=== PATIENT | female | born 1965 | race African-American/Black ===

== ENCOUNTER 2017-09-24 14:55 | Inpatient (IN) ==
--- NOTE | 2017-09-24 14:59 | Emergency Department Note ---
Disposition Clinical Impression: Syncope and collapse Disposition: Admitted As Inpatient Condition: Fair General Adult HPI - General Chief complaint: ED Fall Stated complaint: SYNCOPE Time Seen by Provider: 09/24/17 14:58 - Related Data Home Medications Medication Instructions Recorded Confirmed Metoprolol XL (24 HR) Succ [Toprol 100 mg PO DAILY 05/04/15 05/29/17 Xl] Simvastatin [Zocor] 40 mg PO HS 05/04/15 05/29/17 Rivaroxaban [Xarelto] 20 mg PO DAILY 06/23/15 05/29/17 Gabapentin [Neurontin] 300 mg PO HS 01/12/16 05/29/17 Furosemide [Lasix] 20 mg PO DAILY 02/02/16 05/29/17 Losartan [Cozaar] 25 mg PO DAILY 02/02/16 05/29/17 Trazodone HCl 150 mg PO HS 02/02/16 05/29/17 Nitroglycerin [Nitrostat] 0.4 mg SL Q5M PRN 03/10/16 05/29/17 Aspirin 81 mg PO DAILY 05/04/16 05/29/17 Digoxin [Lanoxin] 0.125 mg PO DAILY 04/22/17 05/29/17 Escitalopram [Lexapro] 20 mg PO DAILY 04/22/17 05/29/17 Melatonin 10 mg PO HS PRN 04/22/17 05/29/17 Ranitidine HCl [Zantac] 150 mg PO HS 04/22/17 05/29/17 Previous Rx's Medication Instructions Recorded Clopidogrel [Plavix] 75 mg PO DAILY #30 tablet 03/10/16 Potassium Chloride [K-Tab ER] 20 meq PO DAILY #7 tablet.er 06/01/17 Amoxicillin 875 mg PO BID #14 tablet 07/26/17 Allergies Allergy/AdvReac Type Severity Reaction Status Date / Time No Known Allergies Allergy Verified 05/29/17 16:28 Past Medical History - Past Medical History Medical history: Reports: arthritis, atrial fibrillation, cardiomyopathy, CHF, COPD, coronary artery disease, hyperlipidemia, hypertension, myocardial infarction, osteoporosis, peripheral artery disease, other Surgical history: Reports: angioplasty/stent, breast surgery, pacemaker/AICD, other Psychiatric history: Reports: anxiety, depression, panic disorder 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 - Social History Smoking Status: Unknown if ever smoked Smokeless Tobacco Status: No Alcohol use: Reports: none Drug use: Reports: none Course Vital Signs Temperature 97.6 F 09/24/17 14:57 Pulse Rate 101 09/24/17 14:57 Respiratory Rate 22 09/24/17 14:57 Blood Pressure 120/99 09/24/17 14:57 O2 Sat by Pulse Oximetry 94 09/24/17 14:57 Temperature 97.9 F 09/25/17 07:04 Pulse Rate 85 09/25/17 07:04 Respiratory Rate 15 09/25/17 07:04 Blood Pressure 102/66 09/25/17 07:04 O2 Sat by Pulse Oximetry 97 09/25/17 07:04 Oxygen Delivery Oxygen Delivery Room Air Medical Decision Making - Lab Data Result diagrams: 09/25/17 03:30 09/25/17 03:30 Lab Results 09/24/17 09/24/17 09/24/17 Range/Units 15:03 15:43 15:43 WBC 6.4 (4.3-11.1) K/mcL RBC 4.53 (3.82-4.97) M/mcL Hgb 12.7 (11.5-15.4) g/dL Hct 41.2 (35.3-44.9) % MCV 90.9 (83.0-100.0) fL MCH 28.0 (28.0-33.3) pg MCHC 30.8 L (31.6-35.5) g/dL RDW 15.0 H (11.5-14.5) % Plt Count 244 (140-400) K/mcL MPV 9.5 (9.4-12.4) fL Immature Gran % 0.3 (0-4) % Seg Neutrophils % 71.4 % Lymphocytes % 16.0 % Monocytes % 8.1 % Eosinophils % 3.7 % Basophils % 0.5 % Neutrophils # 4.6 (1.6-8.9) K/mcL Lymphocytes # 1.0 (0.6-4.6) K/mcL Monocytes # 0.5 (0.0-1.3) K/mcL Eosinophils # 0.2 (0.0-0.6) K/mcL Basophils # 0.0 (0.0-0.2) K/mcL Immature Plt Fraction 2.3 (1.1-6.1) % Sodium 140 (136-145) mEq/L Potassium 3.6 (3.5-5.1) mEq/L Chloride 109 H (98-107) mEq/L Carbon Dioxide 25 (23-29) mEq/L BUN 12 (6-20) mg/dL Creatinine 0.73 (0.60-1.20) mg/dL Est GFR ( Amer) > 60 (> 60) Est GFR (Non-Af Amer) > 60 (> 60) BUN/Creatinine Ratio 16 (6-26) Glucose 102 (70-105) mg/dL POC Glucose 125 H (58-89) Calculated Osmolality 290 (280-300) Calcium 8.4 L (8.6-10.3) mg/dL Total Bilirubin 1.1 H (0.3-1.0) mg/dL Direct Bilirubin 0.4 H (0.0-0.2) mg/dL Indirect Bilirubin 0.7 (0.0-1.2) mg/dL AST 15 (13-39) Units/L ALT 10 (7-52) Units/L Alkaline Phosphatase 64 (34-104) Units/L Troponin I (< 0.04) ng/mL Serum Total Protein 6.5 (6.4-8.9) g/dL Albumin 3.3 L (3.5-5.7) g/dL Globulin 3.2 (2.4-3.5) g/dL Albumin/Globulin Ratio 1.0 L (1.1-2.2) Lipase 23 (11-82) Units/L Digoxin 0.3 L (0.8-2.0) ng/mL 09/24/ Range/Units 15:43 WBC (4.3-11.1) K/mcL RBC (3.82-4.97) M/mcL Hgb (11.5-15.4) g/dL Hct (35.3-44.9) % MCV (83.0-100.0) fL MCH (28.0-33.3) pg MCHC (31.6-35.5) g/dL RDW (11.5-14.5) % Plt Count (140-400) K/mcL MPV (9.4-12.4) fL Immature Gran % (0-4) % Seg Neutrophils % % Lymphocytes % % Monocytes % % Eosinophils % % Basophils % % Neutrophils # (1.6-8.9) K/mcL Lymphocytes # (0.6-4.6) K/mcL Monocytes # (0.0-1.3) K/mcL Eosinophils # (0.0-0.6) K/mcL Basophils # (0.0-0.2) K/mcL Immature Plt Fraction (1.1-6.1) % Sodium (136-145) mEq/L Potassium (3.5-5.1) mEq/L Chloride (98-107) mEq/L Carbon Dioxide (23-29) mEq/L BUN (6-20) mg/dL Creatinine (0.60-1.20) mg/dL Est GFR ( Amer) (> 60) Est GFR (Non-Af Amer) (> 60) BUN/Creatinine Ratio (6-26) Glucose (70-105) mg/dL POC Glucose (58-89) Calculated Osmolality (280-300) Calcium (8.6-10.3) mg/dL Total Bilirubin (0.3-1.0) mg/dL Direct Bilirubin (0.0-0.2) mg/dL Indirect Bilirubin (0.0-1.2) mg/dL AST (13-39) Units/L ALT (7-52) Units/L Alkaline Phosphatase (34-104) Units/L Troponin I < 0.03 (< 0.04) ng/mL Serum Total Protein (6.4-8.9) g/dL Albumin (3.5-5.7) g/dL Globulin (2.4-3.5) g/dL Albumin/Globulin Ratio (1.1-2.2) Lipase (11-82) Units/L Digoxin (0.8-2.0) ng/mL Attestation Statement - Attestation Attestation: I examined this patient and my medical decision-making was reviewed with the Resident Physician. I agree with the documented findings, disposition and treatment plan as described except to the extent set forth below. [id number] time provided Patient arrives by EMS after a syncopal event. She states she bent over and leaned forward and then passed out. She does not appear in any acute distress at the time of my initial evaluation. Patient seen in conjunction with the resident physician Dr. Cedeño 16:44: [place] syncope score calculated. Patient is not low risk. We will request admission for telemetry monitoring and observation
--- NOTE | 2017-09-24 15:11 | Emergency Department Note ---
Disposition Clinical Impression: Syncope and collapse Disposition: Admitted As Inpatient Condition: Fair Time of Disposition: 17:31 Fall HPI - General Chief Complaint: ED Fall Stated Complaint: SYNCOPE Time Seen by Provider: 09/24/17 14:58 Source: patient, EMS Nursing Notes Reviewed: Yes Vital Signs Reviewed: Yes - History of Present Illness HPI Narrative: 52-year-old female complains of syncopal episode that happened around 3 PM today. 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 That is when she passed out coming straight onto the ground. Patient states she woke up on her left side but does not think she hit her head. She does not complain of any head pain or neck pain. Patient states it was unwitnessed. She has a history of COPD, CHF, RI, diabetes, hyperlipidemia, hypertension, right ovarian tumor, and A. fib. - Related Data Home Medications Medication Instructions Recorded Confirmed Metoprolol XL (24 HR) Succ [Toprol 100 mg PO DAILY 05/04/15 05/29/17 Xl] Simvastatin [Zocor] 40 mg PO HS 05/04/15 05/29/17 Rivaroxaban [Xarelto] 20 mg PO DAILY 06/23/15 05/29/17 Gabapentin [Neurontin] 300 mg PO HS 01/12/16 05/29/17 Furosemide [Lasix] 20 mg PO DAILY 02/02/16 05/29/17 Losartan [Cozaar] 25 mg PO DAILY 02/02/16 05/29/17 Trazodone HCl 150 mg PO HS 02/02/16 05/29/17 Nitroglycerin [Nitrostat] 0.4 mg SL Q5M PRN 03/10/16 05/29/17 Aspirin 81 mg PO DAILY 05/04/16 05/29/17 Digoxin [Lanoxin] 0.125 mg PO DAILY 04/22/17 05/29/17 Escitalopram [Lexapro] 20 mg PO DAILY 04/22/17 05/29/17 Melatonin 10 mg PO HS PRN 04/22/17 05/29/17 Ranitidine HCl [Zantac] 150 mg PO HS 04/22/17 05/29/17 Previous Rx's Medication Instructions Recorded Clopidogrel [Plavix] 75 mg PO DAILY #30 tablet 03/10/16 Potassium Chloride [K-Tab ER] 20 meq PO DAILY #7 tablet.er 10/25/17 Amoxicillin 875 mg PO BID #14 tablet 07/26/17 Allergies Allergy/AdvReac Type Severity Reaction Status Date / Time No Known Allergies Allergy Verified 05/29/17 16:28 All systems ED: reviewed and negative except as stated. Review of Systems: As Per HPI Constitutional: Reports: weakness. 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: 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: 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 - Social History Smoking Status: Unknown if ever smoked Alcohol use: Reports: none Drug use: Reports: none Physical Exam Vital Signs Temperature 97.6 F 09/24/17 14:57 Pulse Rate 101 09/24/17 14:57 Respiratory Rate 22 09/24/17 14:57 Blood Pressure 120/99 09/24/17 14:57 O2 Sat by Pulse Oximetry 94 09/24/17 14:57 Temperature 97.9 F 09/25/17 07:04 Pulse Rate 85 09/25/17 07:04 Respiratory Rate 15 09/25/17 07:04 Blood Pressure 102/66 09/25/17 07:04 O2 Sat by Pulse Oximetry 97 09/25/17 07:04 Oxygen Delivery Oxygen Delivery Room Air CONSTITUTIONAL: Well-appearing; well-nourished; A&O X 3, in no apparent distress HEAD: Normocephalic; atraumatic EYES: PERRL, no scleral icterus NOSE: The nose is normal in appearance without rhinorrhea NECK: No JVD or distended neck veins RESP: Normal chest excursion with respiration; breath sounds clear and equal bilaterally; no wheezes, rhonchi, or rales CARD: Irregularly irregular rhythm, without murmurs, rub or gallop ABD: Non-distended; non-tender, soft, without rigidity, rebound or guarding,no pulsatile mass CHEST: No pain with palpation SKIN: Normal for age and race; warm and dry without diaphoresis ; no apparent lesions EXTREMITIES: Pulses are 2 plus and equal times 4 extremities, no peripheral edema or calf muscle pain NEUROLOGICAL: Patient is alert and oriented times three. Cranial nerves III- XII are intact. Sensory and motor functions are intact. Strength is 5/5 for flexion and extension in all 4 extremities. Patellar DTRS are equal and intact. Finger to nose testing is equal and normal bilaterally. No dysdiadochokinesis - General Limitations: no limitations General appearance: alert Course Vital Signs Temperature 97.6 F 09/24/17 14:57 Pulse Rate 101 09/24/17 14:57 Respiratory Rate 22 09/24/17 14:57 Blood Pressure 120/99 09/24/17 14:57 O2 Sat by Pulse Oximetry 94 09/24/17 14:57 Temperature 97.9 F 09/25/17 07:04 Pulse Rate 85 09/25/17 07:04 Respiratory Rate 15 09/25/17 07:04 Blood Pressure 102/66 09/25/17 07:04 O2 Sat by Pulse Oximetry 97 09/25/17 07:04 Oxygen Delivery Oxygen Delivery Room Air Fall - MDM Narrative Medical decision making narrative: Patient presents after syncopal episode. Patient is currently in stable condition. No acute findings on exam. But due to patient's history of CHF and A. fib patient is high risk under the [place] syncope rule and will be admitted for further evaluation. The patient understands and agrees to decision for admission. Patient's lab work was clinically unremarkable for any abnormalities and has remained stable throughout her evaluation. She currently has no complaints at this time. Patient's EKG shows A. fib at a regular rate. No change from previous EKG. Moises Landeros the hospitalist accepted patient for admission at [address] head without contrast ordered hospitalist requests. - Lab Data Lab results reviewed: Yes I reviewed the patient's lab results. Lab results narrative: Short CBC 09/24/17 Range/Units 15:43 WBC 6.4 (4.3-11.1) K/mcL Hgb 12.7 (11.5-15.4) g/dL Hct 41.2 (35.3-44.9) % Plt Count 244 (140-400) K/mcL Neutrophils # 4.6 (1.6-8.9) K/mcL BMP 09/24/17 Range/Units 15:43 Sodium 140 (136-145) mEq/L Potassium 3.6 (3.5-5.1) mEq/L Chloride 109 H (98-107) mEq/L Carbon Dioxide 25 (23-29) mEq/L BUN 12 (6-20) mg/dL Creatinine 0.73 (0.60-1.20) mg/dL Glucose 102 (70-105) mg/dL Calcium 8.4 L (8.6-10.3) mg/dL Cardiac Enzymes 09/24/17 Range/Units 15:43 Troponin I < 0.03 (< 0.04) ng/mL Liver Function 09/24/17 Range/Units 15:43 Total Bilirubin 1.1 H (0.3-1.0) mg/dL Direct Bilirubin 0.4 H (0.0-0.2) mg/dL AST 15 (13-39) Units/L ALT 10 (7-52) Units/L Alkaline Phosphatase 64 (34-104) Units/L Albumin 3.3 L (3.5-5.7) g/dL Result diagrams: 09/25/17 03:30 09/25/17 03:30 Lab Results 09/24/17 09/24/17 09/24/17 Range/Units 15:03 15:43 15:43 WBC 6.4 (4.3-11.1) K/mcL RBC 4.53 (3.82-4.97) M/mcL Hgb 12.7 (11.5-15.4) g/dL Hct 41.2 (35.3-44.9) % MCV 90.9 (83.0-100.0) fL MCH 28.0 (28.0-33.3) pg MCHC 30.8 L (31.6-35.5) g/dL RDW 15.0 H (11.5-14.5) % Plt Count 244 (140-400) K/mcL MPV 9.5 (9.4-12.4) fL Immature Gran % 0.3 (0-4) % Seg Neutrophils % 71.4 % Lymphocytes % 16.0 % Monocytes % 8.1 % Eosinophils % 3.7 % Basophils % 0.5 % Neutrophils # 4.6 (1.6-8.9) K/mcL Lymphocytes # 1.0 (0.6-4.6) K/mcL Monocytes # 0.5 (0.0-1.3) K/mcL Eosinophils # 0.2 (0.0-0.6) K/mcL Basophils # 0.0 (0.0-0.2) K/mcL Immature Plt Fraction 2.3 (1.1-6.1) % Sodium 140 (136-145) mEq/L Potassium 3.6 (3.5-5.1) mEq/L Chloride 109 H (98-107) mEq/L Carbon Dioxide 25 (23-29) mEq/L BUN 12 (6-20) mg/dL Creatinine 0.73 (0.60-1.20) mg/dL Est GFR ( Amer) > 60 (> 60) Est GFR (Non-Af Amer) > 60 (> 60) BUN/Creatinine Ratio 16 (6-26) Glucose 102 (70-105) mg/dL POC Glucose 125 H (58-89) Calculated Osmolality 290 (280-300) Calcium 8.4 L (8.6-10.3) mg/dL Total Bilirubin 1.1 H (0.3-1.0) mg/dL Direct Bilirubin 0.4 H (0.0-0.2) mg/dL Indirect Bilirubin 0.7 (0.0-1.2) mg/dL AST 15 (13-39) Units/L ALT 10 (7-52) Units/L Alkaline Phosphatase 64 (34-104) Units/L Troponin I (< 0.04) ng/mL Serum Total Protein 6.5 (6.4-8.9) g/dL Albumin 3.3 L (3.5-5.7) g/dL Globulin 3.2 (2.4-3.5) g/dL Albumin/Globulin Ratio 1.0 L (1.1-2.2) Lipase 23 (11-82) Units/L Digoxin 0.3 L (0.8-2.0) ng/mL 09/24/17 Range/Units 15:43 WBC (4.3-11.1) K/mcL RBC (3.82-4.97) M/mcL Hgb (11.5-15.4) g/dL Hct (35.3-44.9) % MCV (83.0-100.0) fL MCH (28.0-33.3) pg MCHC (31.6-35.5) g/dL RDW (11.5-14.5) % Plt Count (140-400) K/mcL MPV (9.4-12.4) fL Immature Gran % (0-4) % Seg Neutrophils % % Lymphocytes % % Monocytes % % Eosinophils % % Basophils % % Neutrophils # (1.6-8.9) K/mcL Lymphocytes # (0.6-4.6) K/mcL Monocytes # (0.0-1.3) K/mcL Eosinophils # (0.0-0.6) K/mcL Basophils # (0.0-0.2) K/mcL Immature Plt Fraction (1.1-6.1) % Sodium (136-145) mEq/L Potassium (3.5-5.1) mEq/L Chloride (98-107) mEq/L Carbon Dioxide (23-29) mEq/L BUN (6-20) mg/dL Creatinine (0.60-1.20) mg/dL Est GFR ( Amer) (> 60) Est GFR (Non-Af Amer) (> 60) BUN/Creatinine Ratio (6-26) Glucose (70-105) mg/dL POC Glucose (58-89) Calculated Osmolality (280-300) Calcium (8.6-10.3) mg/dL Total Bilirubin (0.3-1.0) mg/dL Direct Bilirubin (0.0-0.2) mg/dL Indirect Bilirubin (0.0-1.2) mg/dL AST (13-39) Units/L ALT (7-52) Units/L Alkaline Phosphatase (34-104) Units/L Troponin I < 0.03 (< 0.04) ng/mL Serum Total Protein (6.4-8.9) g/dL Albumin (3.5-5.7) g/dL Globulin (2.4-3.5) g/dL Albumin/Globulin Ratio (1.1-2.2) Lipase (11-82) Units/L Digoxin (0.8-2.0) ng/mL - Radiology Data Radiology results reviewed: Yes I reviewed the patient's radiology results. Abdomen/Pelvis CT 09/24/17 15:10 IMPRESSION: 1. No acute process in the abdomen or pelvis. 2. Cardiomegaly with likely diffuse third-spacing. 3. Small amount of ascites. 4. Diffuse anasarca. 5. Bilateral pleural effusions, which are small to moderate on the right and small on the left. 6. Coronary atherosclerosis. D/ / 09/24/2017 16:11:04 Jian Romero MD / mally Interpreting Provider: Jian Romero MD Chest X-Ray 09/24/17 15:10 IMPRESSION: 1. Mild pulmonary edema with small effusions and basilar atelectasis. 2. Cardiomegaly. D/ / 09/24/2017 15:26:29 Breonna Yi MD / jayro Interpreting Provider: Breonna Yi MD Head CT 09/24/17 17:28 IMPRESSION: No acute intracranial abnormality. D/ / Jian Romero MD / Jian Romero MD Interpreting Provider: Jian Romero MD - EKG Data EKG attestation: Yes I reviewed and interpreted this EKG. Rate: normal Rhythm: A.Fib [place]/QRS: normal When compared to previous EKG there are: no significant changes Interpretation: no acute changes, unchanged when compared to prior tracing (date ) (07/26/2017)
[2017-09-24 16:06] LABS: Basophils % 0.5 %; Eosinophils # 0.2 K/mcL (0.0-0.6); Eosinophils % 3.7 %; Hematocrit 41.2 % (35.3-44.9); Hemoglobin 12.7 g/dL (11.5-15.4); Immature Granulocytes % 0.3 % (0-4); Immature Platelets 2.3 % (1.1-6.1); Mean Corpuscular HGB Conc 30.8 g/dL (31.6-35.5); Mean Corpuscular Volume 90.9 fL (83.0-100.0); Mean Platelet Volume 9.5 fL (9.4-12.4); Monocytes # 0.5 K/mcL (0.0-1.3); Monocytes % 8.1 %; Neutrophils # 4.6 K/mcL (1.6-8.9); Platelet Count 244 K/mcL (140-400); Red Blood Count 4.53 M/mcL (3.82-4.97); Segmented Neutrophils % 71.4 %
[2017-09-24 16:36] LABS: Alanine Aminotransferase 10 Units/L (7-52); Albumin 3.3 g/dL (3.5-5.7); Alkaline Phosphatase 64 Units/L (34-104); Aspartate Amino Transferase 15 Units/L (13-39); BUN/Creatinine Ratio 16 (6-26); Bilirubin,Direct 0.4 mg/dL (0.0-0.2); Bilirubin,Indirect 0.7 mg/dL (0.0-1.2); Bilirubin,Total 1.1 mg/dL (0.3-1.0); Blood Urea Nitrogen 12 mg/dL (6-20); Calcium 8.4 mg/dL (8.6-10.3); Carbon Dioxide 25 mEq/L (23-29); Chloride 109 mEq/L (98-107); Globulin 3.2 g/dL (2.4-3.5); Glucose 102 mg/dL (70-105); Lipase 23 Units/L (11-82); Osmolality,Calculated 290 (280-300); Potassium 3.6 mEq/L (3.5-5.1); Sodium 140 mEq/L (136-145); Total Protein 6.5 g/dL (6.4-8.9); eGFR For African Americans > 60 (> 60); eGFR For Non-African Americans > 60 (> 60)
[2017-09-24] MEDS ORDERED: Gabapentin 300 MG CAPSULE PO ONE (16:47)
[2017-09-24 17:54] LABS: Digoxin 0.3 ng/mL (0.8-2.0)
[2017-09-24] MEDS ORDERED: Naloxone 0.4 MG/ML INJ IVP PRN (20:45)
[2017-09-24] MEDS ORDERED: Nitroglycerin 0.4 MG TAB.SUBL SL PRN (20:49)
--- NOTE | 2017-09-24 21:21 | Internal Med History&Physical ---
Date of Encounter: 09/24/17 Time of Encounter: 19:00 Assessment and Plan (1) Syncope and collapse Current visit: Yes Status: Acute Etiology is undetermined, pt seems has orthostatic hypotension. Pt has systolic CHF on AICD. Head CT unremarkable. - Will hold HTN meds at this point, closely f/u BP - Cont cardiac monitoring - Echo and duplex carortid - Orthostatic vitals. - Cardiac consult to r/o AICD malfunction or other cardiac etiology of syncope. (2) DVT prophylaxis Current visit: No Status: Acute On xarelto (3) Atrial fibrillation Current visit: No Status: Chronic HR is well controlled, on xarelto for AC Qualifiers: Atrial fibrillation type: chronic Qualified Code(s): I48.2 - Chronic atrial fibrillation (4) CAD (coronary artery disease) Current visit: No Status: Chronic Cont home meds. Qualifiers: Coronary Disease-Associated Artery/Lesion type: [place] artery [place] vs. transplanted heart: [place] heart Associated angina: without angina Qualified Code(s): I25.10 - Atherosclerotic heart disease of [place] coronary artery without angina pectoris (5) Congestive heart failure Current visit: No Status: Chronic Systolic CHF. Signs of mild fluid overload. - Change lasix to iv. - Strict I/O, fluid restriction. - No acute respiratory distress now. Qualifiers: Qualified Code(s): I50.9 - Heart failure, unspecified (6) S/P ICD (internal cardiac defibrillator) procedure Current visit: No Status: Chronic (7) Tobacco abuse Current visit: No Status: Chronic On nicotine patch (8) Blood in stool Current visit: Yes Status: Acute Pt report one time blood in stool, had colonoscope in 2016 and was found polyps. Pt also said she has hemorrhoid. - Hgb is stable now. No signs of active bleeding. - Will not hold xarelto, asa, or plavix now considering pt's hx of A Fib and CAD , but will consider hold if any signs of active bleeding. - Will place pt on clear liquid diet and consult GI on Tuesday (GI is not available tomorrow) Internal Medicine - H&P: HPI Chief complaint: syncope Admitted From: Home Plans for Post Hospital Care: Home History of present illness: Ms. Mckeon is a 52 year old female with Hx of A Fib on xarelto, systolic CHF with EF 25-30% on AICD, COPD, PAD, present to ER for syncope. Pt said when she tried to stand up today,she feels dizzy and then pass out. Pt denies head/neck injury or other injury/pain. Pt denies SOB or chest pain. Pt has mild nausea but no vomiting. Pt report she has diarhea for two days and had 2 BMs today. Pt report she saw blood mixed with stool two days ago but report she has hemorrhoid. Pt has chronic leg swelling although on strict fluid restriction and lasix po. Past Med Surg Social Fam HX - Past Medical History Medical history: arthritis, atrial fibrillation, cardiomyopathy, CHF, COPD, coronary artery disease, hyperlipidemia, hypertension, myocardial infarction, osteoporosis, peripheral artery disease, other Psychiatric history: anxiety, depression, panic disorder - Past Surgical History Surgical History: angioplasty/stent, breast surgery, pacemaker/AICD, other - Social History Smoking Status: Unknown if ever smoked Smokeless Tobacco Status: No Alcohol use: none Drug use: none - Family History Brother Hx Family Cancer: Yes (Colon cancer) Sister Hx Family Cancer: Yes (Breast cancer) Mother Living Status: Hx Family Cardiac Disorders: Yes Hx Family Respiratory Disorders: Yes Hx Family Cancer: Yes (Lung cancer) Hx Family Endocrine Disorder: Yes Hx Family Neuromuscular Disorders: No Hx Family Neurologic Disorders: No Hx Family HEENT Disorders: No Hx Family Autoimmune Disorders: No Internal Medicine - H&P: Meds Metoprolol XL (24 HR) Succ [Toprol Xl] 100 mg PO DAILY 05/04/15 [History] Simvastatin [Zocor] 40 mg PO HS 05/04/15 [History] Rivaroxaban [Xarelto] 20 mg PO DAILY 06/23/15 [History] Gabapentin [Neurontin] 300 mg PO HS 01/12/16 [History] Furosemide [Lasix] 20 mg PO DAILY 02/02/16 [History] Losartan [Cozaar] 25 mg PO DAILY 02/02/16 [History] Trazodone HCl 150 mg PO HS 02/02/16 [History] Clopidogrel [Plavix] 75 mg PO DAILY #30 tablet 03/10/16 [Rx] Nitroglycerin [Nitrostat] 0.4 mg SL Q5M PRN 03/10/16 [History] Aspirin 81 mg PO DAILY 05/04/16 [History] Digoxin [Lanoxin] 0.125 mg PO DAILY 04/22/17 [History] Escitalopram [Lexapro] 20 mg PO DAILY 04/22/17 [History] Melatonin 10 mg PO HS PRN 04/22/17 [History] Ranitidine HCl [Zantac] 150 mg PO HS 04/22/17 [History] Potassium Chloride [K-Tab ER] 20 meq PO DAILY #7 tablet.er 06/01/17 [Rx] Amoxicillin 875 mg PO BID #14 tablet 07/26/17 [Rx] 3 Allergy/AdvReac Type Severity Reaction Status Date / Time No Known Allergies Allergy Verified 05/29/17 16:28 All Systems PM: A 10-system review of systems was performed and is negative for pertinent findings except as documented above in the HPI. - Constitutional Vitals: Temp Pulse Resp BP Pulse Ox 97.5 F L 92 15 111/78 93 09/24/17 20:15 09/24/17 20:15 09/24/17 20:15 09/24/17 20:15 09/24/17 20:15 General appearance: Present: A&O X 3, no acute distress, answers questions appropriately - Head Head exam: Present: atraumatic, normocephalic - Eye Eye exam: Present: PERRL, conjuntiva pink, sclera anicteric Pupils: Present: PERRL - Neck Neck exam general surgery: Present: supple, trachea midline. Absent: lymphadenopathy - Respiratory Respiratory exam: Present: CTAB. Absent: accessory muscle use, rales, rhonchi, wheezes - Cardiovascular Cardiovascular exam: Present: irregular rhythm, +S1, +S2. Absent: diastolic murmur, gallop, rubs, systolic murmur - GI/Abdominal GI/Abdominal exam: Present: normal bowel sounds, soft, no peritoneal signs. Absent: distended, tenderness - Extremities Exam Extremities exam: Present: warm, radial pulses palpable and symmetrical. Absent : calf tenderness, cyanotic, pedal edema - Neurological Exam Neurological exam: Present: CN II-XII intact, oriented X3, no focal deficits. Absent: pronater drift, facial droop, speech deficit - Skin Skin exam: Present: dry, intact Internal Med - H&P Results - Labs CBC & Chem 7: 09/24/17 15:43 09/24/17 15:43 - EKG Data -: EKG Interpreted by Myself Rate: normal (A Fib)
[2017-09-24] MEDS: Famotidine 20 MG TABLET PO SCH (22:52)
[2017-09-24] MEDS: Melatonin 3 MG TABLET PO PRN (22:52)
[2017-09-24] MEDS: traZODone 50 MG TABLET PO SCH (22:52)
[2017-09-25 04:23] LABS: Basophils % 0.7 %; Eosinophils # 0.4 K/mcL (0.0-0.6); Eosinophils % 6.9 %; Hematocrit 40.5 % (35.3-44.9); Hemoglobin 12.3 g/dL (11.5-15.4); Immature Granulocytes % 0.6 % (0-4); Lymphocytes # 1.2 K/mcL (0.6-4.6); Lymphocytes % 21.8 %; Mean Corpuscular HGB Conc 30.4 g/dL (31.6-35.5); Mean Corpuscular Hemoglobin 27.8 pg (28.0-33.3); Mean Corpuscular Volume 91.4 fL (83.0-100.0); Mean Platelet Volume 9.4 fL (9.4-12.4); Monocytes # 0.6 K/mcL (0.0-1.3); Monocytes % 11.2 %; Neutrophils # 3.2 K/mcL (1.6-8.9); Platelet Count 235 K/mcL (140-400); Red Blood Count 4.43 M/mcL (3.82-4.97); Red Cell Distribution Width 15.1 % (11.5-14.5); Segmented Neutrophils % 58.8 %
[2017-09-25 05:17] LABS: BUN/Creatinine Ratio 14 (6-26); Blood Urea Nitrogen 11 mg/dL (6-20); Calcium 8.4 mg/dL (8.6-10.3); Carbon Dioxide 28 mEq/L (23-29); Chloride 110 mEq/L (98-107); Glucose 78 mg/dL (70-105); Magnesium 1.8 mg/dL (1.6-2.6); Osmolality,Calculated 292 (280-300); Potassium 3.8 mEq/L (3.5-5.1); Sodium 142 mEq/L (136-145); eGFR For African Americans > 60 (> 60); eGFR For Non-African Americans > 60 (> 60)
[2017-09-25] MEDS: Nicotine 14 MG PATCH.TD24 TD SCH (07:23)
[2017-09-25] MEDS: Metoprolol XL (24 HR) Succ 50 MG TAB.ER.24H PO SCH (07:23)
[2017-09-25] MEDS: Aspirin 81 MG TAB.CHEW PO SCH (07:23)
[2017-09-25] MEDS: *HR* Digoxin 0.125 MG TABLET PO SCH (07:23)
[2017-09-25] MEDS ORDERED: Furosemide 20 MG/2 ML VIAL IVP SCH (09:00)
--- NOTE | 2017-09-25 13:15 | Cardiology Consult Note ---
Date of Encounter: 09/25/17 Time of Encounter: 13:09 Assessment and Plan (1) Syncope Current Visit: Yes Status: Acute Syncope, suspicious for ortostatic. Preceding diarrhea. Taking cardiac medications. Suspect BP was on low side. Bent over and lightheaded after standing. Interrogate device, evaluate for arrhythmias. [place] supportive care. Qualifiers: Syncope type: unspecified Qualified Code(s): R55 - Syncope and collapse (2) Atrial fibrillation Current Visit: No Status: Chronic Atrial fibrillation, HR seems well controlled. Continue BB and Xarelto therapy. Prior anemia, current Hg stable. Qualifiers: Atrial fibrillation type: chronic Qualified Code(s): I48.2 - Chronic atrial fibrillation (3) Cardiomyopathy Current Visit: No Status: Acute Cardiomyopathy nonischemic per reports. Biventricular heart failure on examination. Pleural effusion, ascities, LE edema. CHF education provided. Cr normal. Recommend IV lasix. Strict I/Os, daily weights. Monitor Cr. Recomment continue aspirin/statin/BB and digoxin therapy. Consider ACEi prior to discharge. Qualifiers: Cardiomyopathy type: unspecified Qualified Code(s): I42.9 - Cardiomyopathy , unspecified (4) CAD (coronary artery disease) Current Visit: No Status: Chronic [place] CAD, prior PCI. Unclear why on Plavix - no recent PCI. Okay to hold. Also on aspirin/Xarelto. Continue statin/BB therapy. Qualifiers: Coronary Disease-Associated Artery/Lesion type: [place] artery [place] vs. transplanted heart: [place] heart Associated angina: without angina Qualified Code(s): I25.10 - Atherosclerotic heart disease of [place] coronary artery without angina pectoris (5) ICD (implantable cardioverter-defibrillator) in place Current Visit: No Status: Chronic Discussion w patient/family: The assessment and plan as outlined above was discussed with the patient and/or family members who expressed understanding and agreement. All questions were answered. Thank you for involving us in the care of your patient. Please call with any questions. History of Present Illness Consult date: 09/25/17 Requesting physician: Barry Martin Consult reason: Syncope Chief complaint: Syncope History of present illness: Ms. Mckeon is a 52 year old female with ah istory of CAD s/p PCI in 2008. Per reports, primarily nonischemic cardiomyopathy s/p ICD. LVEF 30-35%. Chronic AF, Xarelto. Reports diarrhrea for 2 days, suboptiaml PO intake. Yesterday, sweeping the house, bent over to pick something up, significant lightheadedness upon standing. Tried to sit down, but passed out as she was doing this. Reported, this was very transient. No obvious ICD discharged. No preceding chest pain or palpitations. Continues to smoke cigarettes. Reports LE edema, orthopnea. CXR 09/24: Mild pulmonary edema. CT abdomen and pelvis: Diffuse third-spacing. Small ascites. Diffuse anasarca. Bilateral pleuaral effusions. BNP 1405. TTE 05/2017: LVEF 25-30%. Severe LV enlaergement. RV not well visualized. Mild AR. Moderate to severe MR. Mild TR. Mild to moderate VT. Moderate to severe PHTN. Past Med Surg Social Fam HX - Past Medical History Medical history: arthritis, atrial fibrillation, cardiomyopathy, CHF, COPD, coronary artery disease, hyperlipidemia, hypertension, myocardial infarction, osteoporosis, peripheral artery disease, other Psychiatric history: anxiety, depression, panic disorder - Past Surgical History Surgical History: angioplasty/stent, breast surgery, pacemaker/AICD, other - Social History Smoking Status: Unknown if ever smoked Packs per day: / Smokeless Tobacco Status: No Alcohol use: none Drug use: none - Family History Brother Hx Family Cancer: Yes (Colon cancer) Sister Hx Family Cancer: Yes (Breast cancer) Mother Living Status: Age at : 62 Cause of : pulmonary fibrosis, lung cancer Hx Family Cardiac Disorders: Yes (cabg, pvd) Hx Family Respiratory Disorders: Yes Hx Family Cancer: Yes (lung) Hx Family Endocrine Disorder: Yes Hx Family Neuromuscular Disorders: No Hx Family Neurologic Disorders: No Hx Family HEENT Disorders: No Hx Family Autoimmune Disorders: No Medications and Allergies Metoprolol XL (24 HR) Succ [Toprol Xl] 100 mg PO DAILY 05/04/15 [History] Simvastatin [Zocor] 40 mg PO HS 05/04/15 [History] Rivaroxaban [Xarelto] 20 mg PO DAILY 06/23/15 [History] Gabapentin [Neurontin] 300 mg PO TID 01/12/16 [History] Furosemide [Lasix] 20 mg PO BID PRN 02/02/16 [History] Losartan [Cozaar] 25 mg PO DAILY 02/02/16 [History] Trazodone HCl 150 mg PO HS 02/02/16 [History] Clopidogrel [Plavix] 75 mg PO DAILY #30 tablet 03/10/16 [Rx] Nitroglycerin [Nitrostat] 0.4 mg SL Q5M PRN 03/10/16 [History] Aspirin 81 mg PO DAILY 05/04/16 [History] Digoxin [Lanoxin] 0.125 mg PO DAILY 04/22/17 [History] Escitalopram [Lexapro] 20 mg PO DAILY 04/22/17 [History] Melatonin 10 mg PO HS PRN 04/22/17 [History] Ranitidine HCl [Zantac] 150 mg PO BID 04/22/17 [History] HydrOXYzine 10 mg PO TID 09/25/17 [History] Potassium Chloride [Klor-Con Sprinkle] 10 meq PO DAILY 09/25/17 [History] 3 Allergy/AdvReac Type Severity Reaction Status Date / Time No Known Allergies Allergy Verified 05/29/17 16:28 All Systems Review: A 10-system review of systems was performed and is negative for pertinent findings except as documented above in the HPI. - Cardiovascular Cardiovascular: as per HPI, dyspnea on exertion, leg edema, orthopnea - Gastrointestinal Gastrointestinal: diarrhea, other (abdominal distention) Physical Examination Vital Signs, Last 4 Hours Temp Pulse Resp BP Pulse Ox 09/25/17 11:44 97.4 F L 94 18 103/69 92 General: Conversant, No Apparent Distress, Other (Chronically ill appearing.) HEENT: Atraumatic, Normocephaly, Mucus Membranes Moist Neck: Normal carotid pulses Cardiac: Other (Regular rate and rhythm) Lungs: Other (Shallow, wheezing r>l) Abdomen: Soft, Non-Tender, Other (Distended) Musculoskeletal: No Chest Wall Tenderness Extremities: No Clubbing, No Cyanosis, Other (Moderate edema bilaterally) Results 09/25/17 03:30 09/25/17 03:30 Lab Results 09/25/17 09/25/17 09/25/17 03:30 03:30 03:30 WBC 5.4 Hgb 12.3 Hct 40.5 Plt Count 235 Sodium 142 Potassium 3.8 Chloride 110 H Carbon Dioxide 28 BUN 11 Creatinine 0.79 Glucose 78 Calcium 8.4 L Magnesium 1.8 B-Natriuretic Peptide 1405 H - Imaging and Cardiology Echo: report reviewed - EKG Interpretation EKG results cardiology: personally reviewed Consult Discharge Plan - Plan Referrals: Jose Duke MD [Primary Care Provider] -
[2017-09-25] MEDS ORDERED: Acetaminophen 325 MG TABLET PO PRN (13:59)
[2017-09-25] MEDS: Furosemide 40 MG/4 ML VIAL IVP SCH (14:03)
--- NOTE | 2017-09-25 14:06 | Internal Med Progress Note ---
Date of Encounter: 09/25/17 Time of Encounter: 14:04 - Assessment and plan (1) Syncope Current Visit: Yes Status: Acute Assessment and plan: 1 we will check orthostatic vital signs-patient had been experiencing some diarrhea as well as she is on diuretics/cardiac medications. Denied any palpitations or lightheadedness or headaches prior to the episode. She bent over and became lightheaded after standing and blacked out. She has been seen by cardiology who is interrogating device, evaluate for any arrhythmias We will check echo as well as carotid Dopplers Qualifiers: Syncope type: unspecified Qualified Code(s): R55 - Syncope and collapse (2) Acute on chronic systolic (congestive) heart failure Current Visit: No Status: Acute Assessment and plan: Patient has a history of systolic heart failure she does appear to be mildly fluid overloaded. We will give IV Lasix Strict I and O monitor weight 1500 fluid restriction (3) CAD (coronary artery disease) Current Visit: No Status: Acute Assessment and plan: 1 continue with aspirin and beta pallavi statin ARB Nitroglycerin as needed Qualifiers: Coronary Disease-Associated Artery/Lesion type: [place] artery [place] vs. transplanted heart: [place] heart Associated angina: without angina Qualified Code(s): I25.10 - Atherosclerotic heart disease of [place] coronary artery without angina pectoris (4) Cardiomyopathy Current Visit: No Status: Acute Assessment and plan: 1 history of nonischemic cardiomyopathy-presently does have some heart failure We will continue with IV Lasix Monitor intake and output daily weights Continue with aspirin and statin beta pallavi and digoxin Qualifiers: Cardiomyopathy type: unspecified Qualified Code(s): I42.9 - Cardiomyopathy , unspecified (5) Blood in stool Current Visit: Yes Status: Acute Assessment and plan: Patient report 1 episode of blood in stool she did have a colonoscopy in 2016 at that time there were some polyps. She also has history of hemorrhoids As likely hemoglobin is stable signs of active bleeding we will continue to monitor We will continue with his relative and aspirin however we will hold Plavix-per cardiology's recommendations Continue with clear liquid diet patient will be seeing GI tomorrow since no GI is available today (6) Atrial fibrillation Current Visit: No Status: Chronic Assessment and plan: Presently rate controlled continue with digoxin beta pallavi and Xarelto Qualifiers: Atrial fibrillation type: chronic Qualified Code(s): I48.2 - Chronic atrial fibrillation (7) DVT prophylaxis Current Visit: No Status: Acute Assessment and plan: Patient is on xarelto - Time Spent With Patient less than 15 minutes - Subjective Interval history: No CP or SOB. Complains of back pain otherwise doing well - Constitutional Vitals: Temp Pulse Resp BP Pulse Ox 97.4 F L 94 18 103/69 92 09/25/17 11:44 09/25/17 11:44 09/25/17 11:44 09/25/17 11:44 09/25/17 11:44 General appearance: Present: A&O X 3, no acute distress, answers questions appropriately - Head Head exam: Present: atraumatic, normocephalic - Eye Eye exam: Present: PERRL, conjuntiva pink, sclera anicteric Pupils: Present: PERRL - Neck Neck exam general surgery: Present: supple, trachea midline. Absent: lymphadenopathy - Respiratory Respiratory exam: Present: CTAB. Absent: accessory muscle use, rales, rhonchi, wheezes - Cardiovascular Cardiovascular exam: Present: RRR, +S1, +S2. Absent: diastolic murmur, gallop, rubs, systolic murmur - GI/Abdominal GI/Abdominal exam: Present: normal bowel sounds, soft, no peritoneal signs. Absent: distended, tenderness - Extremities Exam Extremities exam: Present: warm, radial pulses palpable and symmetrical. Absent : calf tenderness, cyanotic, pedal edema - Neurological Exam Neurological exam: Present: CN II-XII intact, oriented X3, no focal deficits. Absent: pronater drift, facial droop, speech deficit - Skin Skin exam: Present: dry, intact Internal Medicine: Result - Labs CBC & Chem 7: 09/25/17 03:30 09/25/17 03:30 Labs: Short CBC 09/25/17 Range/Units 03:30 WBC 5.4 (4.3-11.1) K/mcL Hgb 12.3 (11.5-15.4) g/dL Hct 40.5 (35.3-44.9) % Plt Count 235 (140-400) K/mcL Neutrophils # 3.2 (1.6-8.9) K/mcL BMP 09/25/17 03:30 Sodium 142 Potassium 3.8 Chloride 110 H Carbon Dioxide 28 BUN 11 Creatinine 0.79 Glucose 78 Calcium 8.4 L Consult Discharge Plan - Plan Referrals: Jose Duke MD [Primary Care Provider] -
[2017-09-25] MEDS: Gabapentin 300 MG CAPSULE PO SCH ×2 (14:12→22:13)
[2017-09-25] MEDS: *HR* Rivaroxaban 10 MG TABLET PO SCH (16:55)
[2017-09-25] MEDS: traZODone 50 MG TABLET PO SCH (22:13)
[2017-09-25] MEDS: Famotidine 20 MG TABLET PO SCH (22:13)
[2017-09-25] MEDS: Melatonin 3 MG TABLET PO PRN (22:14)
[2017-09-26 06:57] LABS: Basophils % 0.6 %; Eosinophils # 0.3 K/mcL (0.0-0.6); Eosinophils % 5.8 %; Hematocrit 44.6 % (35.3-44.9); Hemoglobin 13.5 g/dL (11.5-15.4); Immature Granulocytes % 0.2 % (0-4); Lymphocytes % 20.6 %; Mean Corpuscular HGB Conc 30.3 g/dL (31.6-35.5); Mean Corpuscular Hemoglobin 28.2 pg (28.0-33.3); Mean Corpuscular Volume 93.1 fL (83.0-100.0); Mean Platelet Volume 9.8 fL (9.4-12.4); Monocytes # 0.4 K/mcL (0.0-1.3); Monocytes % 8.4 %; Platelet Count 241 K/mcL (140-400); Red Blood Count 4.79 M/mcL (3.82-4.97); Red Cell Distribution Width 14.9 % (11.5-14.5); Segmented Neutrophils % 64.4 %
[2017-09-26 07:20] LABS: BUN/Creatinine Ratio 13 (6-26); Blood Urea Nitrogen 11 mg/dL (6-20); Calcium 8.8 mg/dL (8.6-10.3); Carbon Dioxide 31 mEq/L (23-29); Chloride 105 mEq/L (98-107); Glucose 103 mg/dL (70-105); Osmolality,Calculated 292 (280-300); Potassium 3.8 mEq/L (3.5-5.1); Sodium 141 mEq/L (136-145); eGFR For African Americans > 60 (> 60); eGFR For Non-African Americans > 60 (> 60)
[2017-09-26] MEDS: Aspirin 81 MG TAB.CHEW PO SCH (09:00)
[2017-09-26] MEDS: Metoprolol XL (24 HR) Succ 50 MG TAB.ER.24H PO SCH (09:00)
[2017-09-26] MEDS: traMADol 50 MG TABLET PO PRN ×3 (09:00→23:11)
[2017-09-26] MEDS: *HR* Digoxin 0.125 MG TABLET PO SCH (09:00)
[2017-09-26] MEDS: Gabapentin 300 MG CAPSULE PO SCH ×3 (09:00→20:43)
[2017-09-26] MEDS: Nicotine 14 MG PATCH.TD24 TD SCH (09:01)
[2017-09-26] MEDS: Furosemide 40 MG/4 ML VIAL IVP SCH (09:01)
--- NOTE | 2017-09-26 09:30 | Cardiology Progress Note ---
Date of Encounter: 09/26/17 Time of Encounter: 09:26 Assessment and Plan (1) Syncope Current Visit: Yes Status: Acute Syncope, suspicious for ortostasis. Preceding diarrhea and occurred with position change. Taking cardiac medications. Suspect BP was on low side. Repeat TTE completed and shows EF 25%, moderate mitral regurgitation, and severe pulmonary hypertension. Known non-ischemic cardiomyopathy per history. TTE 05/2017- EF 25-30%, moderate to severe MR. ICD in place. Device check completed. Shows normal functioning device. No significant arrhythmias seen. B/p as low as 80/50 through the night. Decrease toprol XL to 75 mg. Qualifiers: Syncope type: unspecified Qualified Code(s): R55 - Syncope and collapse (2) Atrial fibrillation Current Visit: No Status: Chronic Atrial fibrillation, HR seems well controlled. Continue BB and Xarelto therapy. Prior anemia, current Hg stable. Qualifiers: Atrial fibrillation type: chronic Qualified Code(s): I48.2 - Chronic atrial fibrillation (3) Cardiomyopathy Current Visit: No Status: Acute Cardiomyopathy nonischemic per reports. TTE shows EF 25%, moderate MR, severe pulmonary hypertension. Biventricular heart failure on examination. Pleural effusion, ascities, LE edema. BNP 1400. CHF education provided, although patient fell asleep during our conversation today. Cr normal. Recommend continuing IV lasix. Strict I/Os, daily weights. Monitor Cr. No I&O recorded. Instructed to measure urine. Recommend continue aspirin/statin/BB and digoxin therapy. Consider ACEi prior to discharge. Qualifiers: Cardiomyopathy type: unspecified Qualified Code(s): I42.9 - Cardiomyopathy , unspecified (4) ICD (implantable cardioverter-defibrillator) in place Current Visit: No Status: Chronic ICD check shows normal functioning device. No concerning events. (5) CAD (coronary artery disease) Current Visit: No Status: Acute [place] CAD, prior PCI. Unclear why on Plavix - no recent PCI. Okay to hold. Also on aspirin/Xarelto. Continue statin/BB therapy. Qualifiers: Coronary Disease-Associated Artery/Lesion type: [place] artery [place] vs. transplanted heart: [place] heart Associated angina: without angina Qualified Code(s): I25.10 - Atherosclerotic heart disease of [place] coronary artery without angina pectoris Discussion w patient/family: The assessment and plan as outlined above was discussed with the patient and/or family members who expressed understanding and agreement. All questions were answered. Thank you for involving us in the care of your patient. Please call with any questions. Subjective Principal diagnosis: syncope Interval history: Ms. Mckeon is very drowsy this morning and falls asleep frequently during my exam. Denies dizziness or lightheadedness. Objective Vital Signs, Last 4 Hours Temp Pulse Resp BP Pulse Ox 09/26/17 07:28 97.7 F 75 16 101/73 97 General: Conversant, No Apparent Distress, Other (drowsy) HEENT: Atraumatic, Normocephaly, Mucus Membranes Moist Neck: No JVD, Normal carotid pulses Cardiac: Reg Rate and Rhythm, Normal S1 and S2, No Murmur Lungs: Normal Breath Sounds, Other (Faint rales noted BLL) Neuro: No focal deficits noted Abdomen: Soft, Non-Tender Skin: No rashes noted on visualized skin Musculoskeletal: No Chest Wall Tenderness Extremities: Other (2+ pitting edema up to her knees. ) Results 09/26/17 06:11 09/26/17 06:11 Lab Results 09/26/17 09/26/17 06:11 06:11 WBC 4.7 Hgb 13.5 Hct 44.6 Plt Count 241 Sodium 141 Potassium 3.8 Chloride 105 Carbon Dioxide 31 H BUN 11 Creatinine 0.88 Glucose 103 Calcium 8.8 - Imaging and Cardiology Echo: report reviewed Other Results: Carotid US- negative. - EKG Interpretation EKG results cardiology: personally reviewed Consult Discharge Plan - Plan Referrals: Jose Duke MD [Primary Care Provider] -
--- NOTE | 2017-09-26 14:59 | Gastroenterology Consult Note ---
<AdamHolger De Guzman - Last Filed: 09/26/17 14:57> Date of Encounter: 09/26/17 Time of Encounter: 11:30 - Time Spent With Patient Total time spent is greater than 50% in coordination of care (as documented) at patient's floor/unit and/or counseling patient: GI History of Present Illness - Data of Consult Patient: known to practice within the last 3 years Consult date: 09/26/17 Requesting Physician: Tanna Taylor CNP - Consult Narrative Reason for consult: Blood in stool 2 days ago History of present illness: Ms. Mckeon is a 52 year old female With PMHx of arthritis, cardiomyopathy, CHF, COPD, CAD, HLD, HTN, ID, s/p pacemaker/AICD who presented to the ED for syncope. Pt stated when she tried to stand up, she felt dizzy and then pass out. Pt report she had diarrhea for two days. Pt report she saw blood mixed with stool, one time, two days ago but reports she has hemorrhoids. Procedures: Colonoscopy 10/15/2016 Dr. Vásquez: 12mm Tubular adenoma and hyperplastic polyp. EGD 10/15/2016 Dr. Vásquez: Barretts esophagus no dysplasia, acute/chronic gastritis, duodenitis, H pylori positive. NSAIDs: ASA Anticoagulation Xarelto, Plavix A/P 1. BRBPR: BRBPR with wiping and in bowl. HGB 12.7 on admission and today Hgb 13.5. Last colonoscopy 10/15/2016 with 2 polyps noted. Recommend daily fiber supplement. Continue to monitor CBC, if Hgb decreases will consider colonoscopy. 2. AICD: Management per Cardiology. Past Med Surg Social Fam HX - Past Medical History Medical history: arthritis, atrial fibrillation, cardiomyopathy, CHF, COPD, coronary artery disease, hyperlipidemia, hypertension, myocardial infarction, osteoporosis, peripheral artery disease, other Psychiatric history: anxiety, depression, panic disorder - Past Surgical History Surgical History: angioplasty/stent, breast surgery, pacemaker/AICD, other - Social History Smoking Status: Unknown if ever smoked Packs per day: 1/4 Smokeless Tobacco Status: No Alcohol use: none Drug use: none - Family History Brother Hx Family Cancer: Yes (Colon cancer) Sister Hx Family Cancer: Yes (Breast cancer) Mother Living Status: Age at : 62 Cause of : pulmonary fibrosis, lung cancer Hx Family Cardiac Disorders: Yes (cabg, pvd) Hx Family Respiratory Disorders: Yes Hx Family Cancer: Yes (lung) Hx Family Endocrine Disorder: Yes Hx Family Neuromuscular Disorders: No Hx Family Neurologic Disorders: No Hx Family HEENT Disorders: No Hx Family Autoimmune Disorders: No - Gastrointestinal Gastrointestinal: Present: as per HPI - Constitutional Constitutional: as per HPI - EENT Eyes: as per HPI Ears: Present: as per HPI Nose, mouth and throat: Present: as per HPI - Cardiovascular Cardiovascular ROS: Present: as per HPI - Respiratory Respiratory IM: Present: as per HPI - Genitourinary Genitourinary: Absent: change in color, Urinary frequency - Neurological ROS Neurological GI: Present: as per HPI - Hematologic/Lymphatic Hematologic/Lymphatic pediatric: Present: as per HPI - Musculoskeletal Musculoskeletal ROS GI: Present: as per HPI - Integumentary Integumentary GI: Present: as per HPI - Psychiatric ROS Psychiatric GI: Present: as per HPI - Endocrine Endocrine IM: Present: as per HPI - Constitutional Vitals: Temp Pulse Resp BP Pulse Ox 97.7 F 72 16 99/68 92 09/26/17 11:15 09/26/17 11:15 09/26/17 11:15 09/26/17 11:15 09/26/17 11:15 General appearance: Present: cooperative, A&O X 3, no acute distress, answers questions appropriately - Head Head exam: Present: atraumatic, normocephalic - Eye Eye exam: Present: normal appearance, sclera anicteric - ENT ENT exam: Present: mucous membranes moist - Neck Neck exam general surgery: Present: normal inspection, trachea midline - Respiratory Respiratory exam: Present: CTAB. Absent: rales, rhonchi - Cardiovascular Cardiovascular exam: Present: RRR, +S1, +S2 - GI/Abdominal GI/Abdominal exam: Present: soft, no peritoneal signs. Absent: distended, firm , guarding, tenderness - Rectal Rectal exam: Present: deferred - Extremities Exam Extremities exam: Present: warm - Neurological Exam Neurological exam: Present: no focal deficits - Psychiatric Psychiatric exam: Present: normal affect, normal mood - Skin Skin exam: Present: dry, intact, normal color, warm Results - Labs CBC & Chem 7: 09/26/17 06:11 09/26/17 06:11 Labs: Last Result Calcium 8.8 mg/dL (8.6-10.3) 09/26/17 06:11 Troponin I < 0.03 ng/mL (< 0.04) 09/24/17 15:43 Entire Visit Hgb 13.5 g/dL (11.5-15.4) 09/26/17 06:11 Hct 44.6 % (35.3-44.9) 09/26/17 06:11 Total Bilirubin 1.1 mg/dL (0.3-1.0) H 09/24/17 15:43 AST 15 Units/L (13-39) 09/24/17 15:43 ALT 10 Units/L (7-52) 09/24/17 15:43 Lipase 23 Units/L (11-82) 09/24/17 15:43 - Impressions Impressions Echocardiogram 09/25/17 20:51 Impressions: LVEF 25%. Mildly dilated left ventricle. Severe global left ventricular systolic dysfunction. Indeterminate diastolic function. Atypical septal motion consistent with paced rhythm. Mildly dilated right ventricle. Mild right ventricular hypokinesis. Severely dilated left atrium. Severely dilated right atrium. Mitral valve leaflets are tethered apically. Moderate mitral regurgitation, which was eccentric and posteriorly directed. Severity of MR could be underestimated. Mild tricuspid regurgitation. Severe pulmonary hypertension. Left Ventricular Wall Motion: Rest Echo Findings The apex, apical inferior, mid inferior, basal inferior, apical anterior, mid anterior, basal anterior, apical septal, mid inferior septal, basal inferior septal, apical lateral, mid anterior lateral, basal anterior lateral, mid anterior septal, mid inferior lateral, basal anterior septal and basal inferior lateral mendoza were hypokinetic. Findings: Study Quality * Technically adequate exam. ECG Findings * Paced rhythm. Left Ventricle * LVEF 25%. * Mildly dilated left ventricle. * Severe global left ventricular systolic dysfunction. * Indeterminate diastolic function. * Atypical septal motion consistent with paced rhythm. Right Ventricle * Mildly dilated right ventricle. * Mild right ventricular hypokinesis. Left Atrium * Severely dilated left atrium. Right Atrium * Severely dilated right atrium. Interatrial Septum * Interatrial septum not well evaluated. Aortic Valve * Aortic valve not well visualized. * Trace aortic regurgitation. * No aortic stenosis. Mitral Valve * Mitral valve leaflets are tethered apically. * Moderate mitral regurgitation, which was eccentric and posteriorly directed. * No mitral stenosis. Tricuspid Valve * Normal tricuspid valve structure. * Mild tricuspid regurgitation. * Severe pulmonary hypertension. Pulmonic Valve * Pulmonic valve not well visualized. Aorta * Normally sized aortic root. Pericardium * The pericardium appears normal. IVC * Normal IVC dimensions and inspiratory collapse. Device lead * A device lead was visualized in the right atrium and right ventricle. Pulmonary Artery * Normal visualized portions of the main pulmonary artery. Consult Discharge Plan - Plan Referrals: Jose Duke MD [Primary Care Provider] - <Elieser Vásquez - Last Filed: 09/26/17 19:11> Date of Encounter: 09/26/17 Time of Encounter: 17:00 - Time Spent With Patient Total time spent is greater than 50% in coordination of care (as documented) at patient's floor/unit and/or counseling patient: GI History of Present Illness - Data of Consult Requesting Physician: Tanna Taylor CNP - Consult Narrative History of present illness: Ms. Mckeon is a 52 year old female - Constitutional Vitals: Temp Pulse Resp BP Pulse Ox 98.3 F 89 16 98/96 91 09/26/17 18:54 09/26/17 18:54 09/26/17 18:54 09/26/17 18:54 09/26/17 18:54 Results - Labs CBC & Chem 7: 09/26/17 06:11 09/26/17 06:11 Labs: Last Result Calcium 8.8 mg/dL (8.6-10.3) 09/26/17 06:11 Troponin I < 0.03 ng/mL (< 0.04) 09/24/17 15:43 Entire Visit Hgb 13.5 g/dL (11.5-15.4) 09/26/17 06:11 Hct 44.6 % (35.3-44.9) 09/26/17 06:11 Total Bilirubin 1.1 mg/dL (0.3-1.0) H 09/24/17 15:43 AST 15 Units/L (13-39) 09/24/17 15:43 ALT 10 Units/L (7-52) 09/24/17 15:43 Lipase 23 Units/L (11-82) 09/24/17 15:43 - Impressions Impressions Echocardiogram 09/25/17 20:51 Impressions: LVEF 25%. Mildly dilated left ventricle. Severe global left ventricular systolic dysfunction. Indeterminate diastolic function. Atypical septal motion consistent with paced rhythm. Mildly dilated right ventricle. Mild right ventricular hypokinesis. Severely dilated left atrium. Severely dilated right atrium. Mitral valve leaflets are tethered apically. Moderate mitral regurgitation, which was eccentric and posteriorly directed. Severity of MR could be underestimated. Mild tricuspid regurgitation. Severe pulmonary hypertension. Left Ventricular Wall Motion: Rest Echo Findings The apex, apical inferior, mid inferior, basal inferior, apical anterior, mid anterior, basal anterior, apical septal, mid inferior septal, basal inferior septal, apical lateral, mid anterior lateral, basal anterior lateral, mid anterior septal, mid inferior lateral, basal anterior septal and basal inferior lateral mendoza were hypokinetic. Findings: Study Quality * Technically adequate exam. ECG Findings * Paced rhythm. Left Ventricle * LVEF 25%. * Mildly dilated left ventricle. * Severe global left ventricular systolic dysfunction. * Indeterminate diastolic function. * Atypical septal motion consistent with paced rhythm. Right Ventricle * Mildly dilated right ventricle. * Mild right ventricular hypokinesis. Left Atrium * Severely dilated left atrium. Right Atrium * Severely dilated right atrium. Interatrial Septum * Interatrial septum not well evaluated. Aortic Valve * Aortic valve not well visualized. * Trace aortic regurgitation. * No aortic stenosis. Mitral Valve * Mitral valve leaflets are tethered apically. * Moderate mitral regurgitation, which was eccentric and posteriorly directed. * No mitral stenosis. Tricuspid Valve * Normal tricuspid valve structure. * Mild tricuspid regurgitation. * Severe pulmonary hypertension. Pulmonic Valve * Pulmonic valve not well visualized. Aorta * Normally sized aortic root. Pericardium * The pericardium appears normal. IVC * Normal IVC dimensions and inspiratory collapse. Device lead * A device lead was visualized in the right atrium and right ventricle. Pulmonary Artery * Normal visualized portions of the main pulmonary artery. - Attending Attestation I examined this patient and my medical decision-making was reviewed with the SK[facility]IVER. I agree with the documented findings, disposition and treatment plan as described except to the extent set forth below. Patient with rectal bleeding 2 days ago no more bleeding. Colonoscopy done in 2017 with finding of 12 mm polyp. History of hemorrhoid, will treat empirically with rectal suppositories Anusol.
--- NOTE | 2017-09-26 15:07 | Internal Med Progress Note ---
Date of Encounter: 09/26/17 Time of Encounter: 14:54 - Assessment and plan (1) Syncope Current Visit: Yes Status: Acute Assessment and plan: 1 suspect this is related to orthostatic changes due to patient has been on cardiac medications diuretics as well as been experiencing diarrhea-presently has not had any diarrhea while admitted She has been seen by cardiology who is interrogating device, no arrhythmias Echo showed decreased in EF down 25% Toprol has been decreased due to low blood pressure Qualifiers: Syncope type: unspecified Qualified Code(s): R55 - Syncope and collapse (2) Acute on chronic systolic (congestive) heart failure Current Visit: No Status: Acute Assessment and plan: Patient has a history of systolic heart failure she does appear to be mildly fluid overloaded. Continue IV Lasix Strict I and O monitor weight-she is down 4 kg from admitting weight 1500 fluid restriction Echo shows worsening EF at 25% down from previous 30-35% LVEF 25%. Mildly dilated left ventricle. Severe global left ventricular systolic dysfunction. Indeterminate diastolic function. Atypical septal motion consistent with paced rhythm. Mildly dilated right ventricle. Mild right ventricular hypokinesis. Severely dilated left atrium. Severely dilated right atrium. Mitral valve leaflets are tethered apically. Moderate mitral regurgitation, which was eccentric and posteriorly directed. Severity of MR could be underestimated. Mild tricuspid regurgitation. Severe pulmonary hypertension. (3) CAD (coronary artery disease) Current Visit: No Status: Acute Assessment and plan: 1 continue with aspirin and beta pallavi statin ARB Nitroglycerin as needed Qualifiers: Coronary Disease-Associated Artery/Lesion type: [place] artery [place] vs. transplanted heart: [place] heart Associated angina: without angina Qualified Code(s): I25.10 - Atherosclerotic heart disease of [place] coronary artery without angina pectoris (4) Cardiomyopathy Current Visit: No Status: Acute Assessment and plan: 1 history of nonischemic cardiomyopathy-echo completed to show EF 25%-down from previous echo We will continue with IV Lasix Monitor intake and output daily weights Continue with aspirin and statin beta pallavi and digoxin Qualifiers: Cardiomyopathy type: unspecified Qualified Code(s): I42.9 - Cardiomyopathy , unspecified (5) Blood in stool Current Visit: Yes Status: Acute Assessment and plan: Patient report 1 episode of blood in stool she did have a colonoscopy in 2016 at that time there were some polyps. She also has history of hemorrhoids Hemoglobin has been stable-no blood in stool at this time We will continue with Xarelto and aspirin however we will hold Plavix-per cardiology's recommendations I did speak with per GI and reviewed case with him advised to just monitor for now and consult if there is any drop in hemoglobin or active bleeding (6) Atrial fibrillation Current Visit: No Status: Chronic Assessment and plan: Presently rate controlled continue with digoxin beta pallavi and Xarelto, we will continue to monitor Qualifiers: Atrial fibrillation type: chronic Qualified Code(s): I48.2 - Chronic atrial fibrillation (7) DVT prophylaxis Current Visit: No Status: Acute Assessment and plan: Patient is on xarelto - Time Spent With Patient less than 15 minutes - Subjective Interval history: Possible history of CAD status post PCI in 2008 nonischemic cardiomyopathy status post ICD LVEF-25% per echo completed 09/26/17 chronic A. fib as on Xarelto. Apparently prior to admission patient has been experiencing diarrhea for 2 days and has had little oral intake, she was at home sleeping when she bent over to pick something up she has significant lightheadedness upon standing she attempted to sit down but she passed out-last a few seconds beginning consciousness. No obvious ICD discharge no preceding chest pain palpitations or headache. Presented to the ER she appeared to be in fluid overload pulmonary edema on x-ray and BNP 1405-she is diuresed with 40 of Lasix IV was seen by cardiology Toprol was decreased. Continue to diurese echo completed, will obtain orthostatics. Apparently she did have some blood in her stool higher to IV to the hospital. She does have a history of GI bleed in the past-past scope showed polyps-hemoglobin has been stable held Plavix continued with aspirin and Xarelto no signs or symptoms of bleeding.-Examine patient was sitting at bedside. She denies any chest pain or shortness of breath. Denies any blood or changes in color and stool. Blood pressure has been down some today systolic and 80s to 90s cardiology decreased Toprol - Constitutional Vitals: Temp Pulse Resp BP Pulse Ox 97.7 F 72 16 99/68 92 09/26/17 11:15 09/26/17 11:15 09/26/17 11:15 09/26/17 11:15 09/26/17 11:15 General appearance: Present: A&O X 3, no acute distress, answers questions appropriately - Head Head exam: Present: atraumatic, normocephalic - Eye Eye exam: Present: PERRL, conjuntiva pink, sclera anicteric Pupils: Present: PERRL - Neck Neck exam general surgery: Present: supple, trachea midline. Absent: lymphadenopathy - Respiratory Respiratory exam: Present: CTAB. Absent: accessory muscle use, rales, rhonchi, wheezes - Cardiovascular Cardiovascular exam: Present: RRR, +S1, +S2. Absent: diastolic murmur, gallop, rubs, systolic murmur - GI/Abdominal GI/Abdominal exam: Present: normal bowel sounds, soft, no peritoneal signs. Absent: distended, tenderness - Extremities Exam Extremities exam: Present: warm, radial pulses palpable and symmetrical. Absent : calf tenderness, cyanotic, pedal edema - Neurological Exam Neurological exam: Present: CN II-XII intact, oriented X3, no focal deficits. Absent: pronater drift, facial droop, speech deficit - Skin Skin exam: Present: dry, intact Internal Medicine: Result - Labs CBC & Chem 7: 09/26/17 06:11 09/26/17 06:11 Labs: Short CBC 09/26/17 Range/Units 06:11 WBC 4.7 (4.3-11.1) K/mcL Hgb 13.5 (11.5-15.4) g/dL Hct 44.6 (35.3-44.9) % Plt Count 241 (140-400) K/mcL Neutrophils # 3.0 (1.6-8.9) K/mcL BMP 09/26/17 06:11 Sodium 141 Potassium 3.8 Chloride 105 Carbon Dioxide 31 H BUN 11 Creatinine 0.88 Glucose 103 Calcium 8.8 - Impressions Impressions Echocardiogram 09/25/17 20:51 Impressions: LVEF 25%. Mildly dilated left ventricle. Severe global left ventricular systolic dysfunction. Indeterminate diastolic function. Atypical septal motion consistent with paced rhythm. Mildly dilated right ventricle. Mild right ventricular hypokinesis. Severely dilated left atrium. Severely dilated right atrium. Mitral valve leaflets are tethered apically. Moderate mitral regurgitation, which was eccentric and posteriorly directed. Severity of MR could be underestimated. Mild tricuspid regurgitation. Severe pulmonary hypertension. Left Ventricular Wall Motion: Rest Echo Findings The apex, apical inferior, mid inferior, basal inferior, apical anterior, mid anterior, basal anterior, apical septal, mid inferior septal, basal inferior septal, apical lateral, mid anterior lateral, basal anterior lateral, mid anterior septal, mid inferior lateral, basal anterior septal and basal inferior lateral mendoza were hypokinetic. Findings: Study Quality * Technically adequate exam. ECG Findings * Paced rhythm. Left Ventricle * LVEF 25%. * Mildly dilated left ventricle. * Severe global left ventricular systolic dysfunction. * Indeterminate diastolic function. * Atypical septal motion consistent with paced rhythm. Right Ventricle * Mildly dilated right ventricle. * Mild right ventricular hypokinesis. Left Atrium * Severely dilated left atrium. Right Atrium * Severely dilated right atrium. Interatrial Septum * Interatrial septum not well evaluated. Aortic Valve * Aortic valve not well visualized. * Trace aortic regurgitation. * No aortic stenosis. Mitral Valve * Mitral valve leaflets are tethered apically. * Moderate mitral regurgitation, which was eccentric and posteriorly directed. * No mitral stenosis. Tricuspid Valve * Normal tricuspid valve structure. * Mild tricuspid regurgitation. * Severe pulmonary hypertension. Pulmonic Valve * Pulmonic valve not well visualized. Aorta * Normally sized aortic root. Pericardium * The pericardium appears normal. IVC * Normal IVC dimensions and inspiratory collapse. Device lead * A device lead was visualized in the right atrium and right ventricle. Pulmonary Artery * Normal visualized portions of the main pulmonary artery. Consult Discharge Plan - Plan Referrals: Jose Duke MD [Primary Care Provider] -
[2017-09-26] MEDS: *HR* Rivaroxaban 10 MG TABLET PO SCH (17:31)
[2017-09-26] MEDS ORDERED: Hydrocortisone Acetate 25 MG RECTAL SUPPOSITORY RC PRN (19:11)
[2017-09-26] MEDS: traZODone 50 MG TABLET PO SCH (20:42)
[2017-09-26] MEDS: Famotidine 20 MG TABLET PO SCH (20:43)
[2017-09-27 07:04] LABS: Basophils % 0.5 %; Eosinophils # 0.4 K/mcL (0.0-0.6); Hematocrit 43.4 % (35.3-44.9); Hemoglobin 13.1 g/dL (11.5-15.4); Immature Granulocytes % 0.3 % (0-4); Lymphocytes # 0.9 K/mcL (0.6-4.6); Lymphocytes % 14.7 %; Mean Corpuscular HGB Conc 30.2 g/dL (31.6-35.5); Mean Corpuscular Hemoglobin 27.7 pg (28.0-33.3); Mean Corpuscular Volume 91.8 fL (83.0-100.0); Mean Platelet Volume 9.4 fL (9.4-12.4); Monocytes # 0.6 K/mcL (0.0-1.3); Monocytes % 8.9 %; Neutrophils # 4.4 K/mcL (1.6-8.9); Nucleated Red Blood Cells 0.3 /100 WBC (0); Platelet Count 228 K/mcL (140-400); Red Blood Count 4.73 M/mcL (3.82-4.97); Red Cell Distribution Width 14.7 % (11.5-14.5); Segmented Neutrophils % 69.6 %
[2017-09-27 07:26] LABS: BUN/Creatinine Ratio 15 (6-26); Blood Urea Nitrogen 11 mg/dL (6-20); Calcium 8.5 mg/dL (8.6-10.3); Carbon Dioxide 29 mEq/L (23-29); Chloride 105 mEq/L (98-107); Glucose 89 mg/dL (70-105); Osmolality,Calculated 287 (280-300); Potassium 3.9 mEq/L (3.5-5.1); Sodium 139 mEq/L (136-145); eGFR For African Americans > 60 (> 60); eGFR For Non-African Americans > 60 (> 60)
[2017-09-27] MEDS: Metoprolol XL (24 HR) Succ 50 MG TAB.ER.24H PO SCH (09:21)
[2017-09-27] MEDS: Furosemide 40 MG/4 ML VIAL IVP SCH (09:21)
[2017-09-27] MEDS: Aspirin 81 MG TAB.CHEW PO SCH (09:21)
[2017-09-27] MEDS: Nicotine 14 MG PATCH.TD24 TD SCH (09:21)
[2017-09-27] MEDS: *HR* Digoxin 0.125 MG TABLET PO SCH (09:21)
[2017-09-27] MEDS: Gabapentin 300 MG CAPSULE PO SCH ×3 (09:21→22:09)
[2017-09-27] MEDS ORDERED: Saline Nasal Spray 44 ML BOTTLE NS PRN (10:17)
--- NOTE | 2017-09-27 11:48 | Cardiology Progress Note ---
Date of Encounter: 09/27/17 Time of Encounter: 11:46 Assessment and Plan (1) Syncope Current Visit: Yes Status: Acute Syncope, suspicious for ortostasis. Preceding diarrhea and occurred with position change. Taking cardiac medications. Suspect BP was on low side. Repeat TTE completed and shows EF 25%, moderate mitral regurgitation, and severe pulmonary hypertension. Known non-ischemic cardiomyopathy per history. TTE 05/2017- EF 25-30%, moderate to severe MR. ICD in place. Device check completed. Shows normal functioning device. No significant arrhythmias seen. B/p Is stable with taking toprol at lower dose. Continue toprol. Qualifiers: Syncope type: unspecified Qualified Code(s): R55 - Syncope and collapse (2) Atrial fibrillation Current Visit: No Status: Chronic Atrial fibrillation, HR seems well controlled. AVG HR 76 bpm, atrial fibrillation, occasional PVC. Continue BB and Xarelto therapy. Prior anemia, current Hg stable. Qualifiers: Atrial fibrillation type: chronic Qualified Code(s): I48.2 - Chronic atrial fibrillation (3) Cardiomyopathy Current Visit: No Status: Acute Cardiomyopathy nonischemic per reports. TTE shows EF 25%, moderate MR, severe pulmonary hypertension. Biventricular heart failure on examination. Pleural effusion, ascities, LE edema. BNP 1400. CHF education provided, although patient fell asleep during our conversation today. Cr normal. Recommend continuing IV lasix. Strict I/Os, daily weights. Monitor Cr. NO I&O RECORDED? Instructed nursing staff and patient to measure urine. Patient reports improvement. Recommend continue aspirin/statin/BB and digoxin therapy. Consider ACEi prior to discharge. Qualifiers: Cardiomyopathy type: unspecified Qualified Code(s): I42.9 - Cardiomyopathy , unspecified (4) ICD (implantable cardioverter-defibrillator) in place Current Visit: No Status: Chronic ICD check shows normal functioning device. No concerning events. (5) CAD (coronary artery disease) Current Visit: No Status: Acute [place] CAD, prior PCI. Unclear why on Plavix - no recent PCI. Okay to hold. Also on aspirin/Xarelto. Continue statin/BB therapy. Qualifiers: Coronary Disease-Associated Artery/Lesion type: [place] artery [place] vs. transplanted heart: [place] heart Associated angina: without angina Qualified Code(s): I25.10 - Atherosclerotic heart disease of [place] coronary artery without angina pectoris Discussion w patient/family: The assessment and plan as outlined above was discussed with the patient and/or family members who expressed understanding and agreement. All questions were answered. Thank you for involving us in the care of your patient. Please call with any questions. Subjective Principal diagnosis: syncope Interval history: Ms. Mckeon is more alert today. She says she feels better. Objective Vital Signs, Last 4 Hours Temp Pulse Resp BP Pulse Ox 09/27/17 11:41 97.8 F 74 18 94/68 94 General: Conversant, No Apparent Distress HEENT: Atraumatic, Normocephaly, Mucus Membranes Moist Neck: No JVD, Normal carotid pulses Cardiac: Reg Rate and Rhythm, Normal S1 and S2, No Murmur Lungs: Normal Breath Sounds, No Wheeze, Rales, Rhonchi Neuro: Alert and responsive, No focal deficits noted Abdomen: Soft, Non-Tender Skin: No rashes noted on visualized skin Musculoskeletal: No Chest Wall Tenderness Extremities: No Clubbing, No Cyanosis, Normal Pulses, Other (2+ ble edema up past knees. ) Results 09/27/17 06:24 09/27/17 06:24 Lab Results 09/27/17 09/27/17 06:24 06:24 WBC 6.3 Hgb 13.1 Hct 43.4 Plt Count 228 Sodium 139 Potassium 3.9 Chloride 105 Carbon Dioxide 29 BUN 11 Creatinine 0.75 Glucose 89 Calcium 8.5 L - Imaging and Cardiology Echo: report reviewed - EKG Interpretation EKG results cardiology: personally reviewed Consult Discharge Plan - Plan Referrals: Jose Duke MD [Primary Care Provider] - 10/11/17 10:30 am
[2017-09-27] MEDS: traMADol 50 MG TABLET PO PRN ×2 (13:19→22:09)
[2017-09-27] MEDS: *HR* Rivaroxaban 10 MG TABLET PO SCH (16:55)
--- NOTE | 2017-09-27 18:46 | Internal Med Progress Note ---
Date of Encounter: 09/27/17 Time of Encounter: 18:44 - Assessment and plan (1) Syncope Current Visit: Yes Status: Acute Assessment and plan: suspect this is related to orthostatic changes due to patient has been on cardiac medications and diuretics, as well as experiencing diarrhea. Has not had any diarrhea while admitted She has been seen by cardiology who is interrogating AICD, no arrhythmias Echo showed decreased in EF down 25% Toprol has been decreased due to low blood pressure Per Cardiology Repeat TTE completed and shows EF 25%, moderate mitral regurgitation, and severe pulmonary hypertension. Known non-ischemic cardiomyopathy per history. TTE 05/2017- EF 25-30%, moderate to severe MR. ICD in place. Device check completed. Shows normal functioning device. No significant arrhythmias seen. B/p Is stable with taking toprol at lower dose. Continue toprol. Qualifiers: Syncope type: unspecified Qualified Code(s): R55 - Syncope and collapse (2) Acute on chronic systolic (congestive) heart failure Current Visit: No Status: Acute Assessment and plan: Patient has a history of systolic heart failure and she does appear to be mildly fluid overloaded. Continue IV Lasix Strict I and O, monitor daily weight-she is down 4 kg from admitting weight 1500 fluid restriction Echo shows worsening EF at 25% down from previous 30-35% LVEF 25%. Mildly dilated left ventricle. Severe global left ventricular systolic dysfunction. Indeterminate diastolic function. Atypical septal motion consistent with paced rhythm. Mildly dilated right ventricle. Mild right ventricular hypokinesis. Severely dilated left atrium. Severely dilated right atrium. Mitral valve leaflets are tethered apically. Moderate mitral regurgitation, which was eccentric and posteriorly directed. Severity of MR could be underestimated. Mild tricuspid regurgitation. Severe pulmonary hypertension. (3) CAD (coronary artery disease) Current Visit: No Status: Acute Assessment and plan: continue with aspirin and beta pallavi statin ARB Nitroglycerin as needed Qualifiers: Coronary Disease-Associated Artery/Lesion type: [place] artery [place] vs. transplanted heart: [place] heart Associated angina: without angina Qualified Code(s): I25.10 - Atherosclerotic heart disease of [place] coronary artery without angina pectoris (4) Cardiomyopathy Current Visit: No Status: Acute Assessment and plan: history of nonischemic cardiomyopathy-echo completed to show EF 25%-down from previous echo continue with IV Lasix Monitor intake and output daily weights Continue with aspirin and statin beta pallavi and digoxin Qualifiers: Cardiomyopathy type: unspecified Qualified Code(s): I42.9 - Cardiomyopathy , unspecified (5) DVT prophylaxis Current Visit: No Status: Acute Assessment and plan: Patient is on xarelto (6) Atrial fibrillation Current Visit: No Status: Chronic Assessment and plan: Presently rate controlled continue with digoxin beta pallavi and Xarelto, continue to monitor Qualifiers: Atrial fibrillation type: chronic Qualified Code(s): I48.2 - Chronic atrial fibrillation (7) Blood in stool Current Visit: Yes Status: Acute Assessment and plan: Patient reported one episode of blood in stool, she did have a colonoscopy in 2016 and at that time there were some polyps. She also has history of hemorrhoids Hemoglobin has been stable-no blood in stool at this time Continue with Xarelto and aspirin however hold Plavix-per cardiology's recommendations GI recommends daily fiber supplement and to monitor CBC. If hemoglobin decreases would consider colonoscopy. - Subjective Interval history: Patient has been out of bed to the chair and denies any dizziness, syncope, chest pain, diarrhea, nausea, fever, chills or difficulty urination. She stated she took a shower and she is feeling much better. - Constitutional Vitals: Temp Pulse Resp BP Pulse Ox 97.9 F 89 18 109/75 96 09/27/17 16:23 09/27/17 16:23 09/27/17 16:23 09/27/17 16:23 09/27/17 16:23 General appearance: Present: cooperative, A&O X 3, pleasant, answers questions appropriately - Head Head exam: Present: atraumatic, normocephalic - Eye Eye exam: Present: PERRL, conjuntiva pink, sclera anicteric Pupils: Present: PERRL - Neck Neck exam general surgery: Present: supple, trachea midline. Absent: lymphadenopathy - Respiratory Respiratory exam: Present: CTAB. Absent: accessory muscle use, rales, rhonchi, wheezes - Cardiovascular Cardiovascular exam: Present: irregular rhythm, +S1, +S2. Absent: diastolic murmur, gallop, JVD, rubs, systolic murmur - GI/Abdominal GI/Abdominal exam: Present: normal bowel sounds, soft, no peritoneal signs. Absent: distended, guarding, tenderness - Extremities Exam Extremities exam: Present: pedal edema, warm, radial pulses palpable and symmetrical. Absent: calf tenderness, cyanotic Additional comments: Bilateral edema past the knees. Normal pulses, no clubbing no cyanosis - Neurological Exam Neurological exam: Present: CN II-XII intact, oriented X3, no focal deficits. Absent: pronater drift, facial droop, speech deficit - Skin Skin exam: Present: dry, intact, warm Internal Medicine: Result - Labs CBC & Chem 7: 09/27/17 06:24 09/27/17 06:24 Labs: Short CBC 09/27/17 Range/Units 06:24 WBC 6.3 (4.3-11.1) K/mcL Hgb 13.1 (11.5-15.4) g/dL Hct 43.4 (35.3-44.9) % Plt Count 228 (140-400) K/mcL Neutrophils # 4.4 (1.6-8.9) K/mcL BMP 09/27/17 06:24 Sodium 139 Potassium 3.9 Chloride 105 Carbon Dioxide 29 BUN 11 Creatinine 0.75 Glucose 89 Calcium 8.5 L Consult Discharge Plan - Plan Referrals: Jose Duke MD [Primary Care Provider] - 10/11/17 10:30 am
[2017-09-27] MEDS: Famotidine 20 MG TABLET PO SCH (22:08)
[2017-09-27] MEDS: traZODone 50 MG TABLET PO SCH (22:09)
[2017-09-28] MEDS: Nicotine 14 MG PATCH.TD24 TD SCH (08:55)
[2017-09-28] MEDS: Gabapentin 300 MG CAPSULE PO SCH ×3 (08:56→20:42)
[2017-09-28] MEDS: Furosemide 40 MG/4 ML VIAL IVP SCH ×2 (08:56→16:41)
[2017-09-28] MEDS: *HR* Digoxin 0.125 MG TABLET PO SCH (08:56)
[2017-09-28] MEDS: Aspirin 81 MG TAB.CHEW PO SCH (08:56)
[2017-09-28] MEDS: Metoprolol XL (24 HR) Succ 50 MG TAB.ER.24H PO SCH (08:56)
--- NOTE | 2017-09-28 11:29 | Internal Med Progress Note ---
Date of Encounter: 09/28/17 Time of Encounter: 11:26 - Assessment and plan (1) Acute on chronic systolic (congestive) heart failure Current Visit: No Status: Acute Assessment and plan: Patient has a history of systolic heart failure and she was fluid overloaded. Continue IV Lasix as per cardiology Strict I and O, monitor daily weight 1500 fluid restriction Echo shows worsening EF at 25% down from previous 30-35% LVEF 25%. Mildly dilated left ventricle. Severe global left ventricular systolic dysfunction. Indeterminate diastolic function. Atypical septal motion consistent with paced rhythm. Mildly dilated right ventricle. Mild right ventricular hypokinesis. Severely dilated left atrium. Severely dilated right atrium. Mitral valve leaflets are tethered apically. Moderate mitral regurgitation, which was eccentric and posteriorly directed. Severity of MR could be underestimated. Mild tricuspid regurgitation. Severe pulmonary hypertension. (2) Syncope Current Visit: Yes Status: Acute Assessment and plan: suspect this is related to orthostatic changes due to patient has been on cardiac medications and diuretics, as well as experiencing diarrhea. Has not had any diarrhea while admitted She has been seen by cardiology who interrogated AICD, no arrhythmias Echo showed decrease in EF down 25% Toprol has been decreased due to low blood pressure Per Cardiology Repeat TTE completed and shows EF 25%, moderate mitral regurgitation, and severe pulmonary hypertension. Known non-ischemic cardiomyopathy per history. TTE 05/2017- EF 25-30%, moderate to severe MR. ICD in place. Device check completed. Shows normal functioning device. No significant arrhythmias seen. B/p Is stable with taking toprol at lower dose. Continue toprol. Qualifiers: Syncope type: unspecified Qualified Code(s): R55 - Syncope and collapse (3) CAD (coronary artery disease) Current Visit: No Status: Acute Assessment and plan: continue with aspirin beta pallavi statin ARB Nitroglycerin as needed Qualifiers: Coronary Disease-Associated Artery/Lesion type: [place] artery [place] vs. transplanted heart: [place] heart Associated angina: without angina Qualified Code(s): I25.10 - Atherosclerotic heart disease of [place] coronary artery without angina pectoris (4) Cardiomyopathy Current Visit: No Status: Acute Assessment and plan: history of nonischemic cardiomyopathy -echo completed to show EF 25%-down from previous echo continue with IV Lasix Monitor intake and output daily weights Continue with aspirin and statin beta pallavi and digoxin Qualifiers: Cardiomyopathy type: unspecified Qualified Code(s): I42.9 - Cardiomyopathy , unspecified (5) DVT prophylaxis Current Visit: No Status: Acute Assessment and plan: xarelto (6) Atrial fibrillation Current Visit: No Status: Chronic Qualifiers: Atrial fibrillation type: chronic Qualified Code(s): I48.2 - Chronic atrial fibrillation (7) Blood in stool Current Visit: Yes Status: Acute - Subjective Interval history: Patient has been out of bed to the chair and denies any dizziness, syncope, chest pain, diarrhea, nausea, fever, chills or difficulty urination. She is sitting up in the chair watching TV. She states she feels near normal. She states her legs are still more swollen than normal. - Constitutional Vitals: Temp Pulse Resp BP Pulse Ox 98.0 F 100 14 98/71 99 09/28/17 10:19 09/28/17 10:19 09/28/17 10:19 09/28/17 10:19 09/28/17 10:19 General appearance: Present: cooperative, A&O X 3, pleasant, answers questions appropriately - Head Head exam: Present: atraumatic, normocephalic - Eye Eye exam: Present: PERRL, conjuntiva pink, sclera anicteric Pupils: Present: PERRL - Neck Neck exam general surgery: Present: supple, trachea midline. Absent: lymphadenopathy - Respiratory Respiratory exam: Present: CTAB. Absent: accessory muscle use, rales, rhonchi, wheezes Additional comments: Decreased in the bases poor respiratory effort - Cardiovascular Cardiovascular exam: Present: irregular rhythm, +S1, +S2. Absent: diastolic murmur, gallop, rubs, systolic murmur - GI/Abdominal GI/Abdominal exam: Present: normal bowel sounds, soft, no peritoneal signs. Absent: distended, tenderness - Extremities Exam Extremities exam: Present: pedal edema, warm, radial pulses palpable and symmetrical. Absent: calf tenderness, cyanotic - Neurological Exam Neurological exam: Present: alert, CN II-XII intact, normal gait, oriented X3, no focal deficits. Absent: pronater drift, facial droop, speech deficit - Skin Skin exam: Present: dry, intact, warm Internal Medicine: Result - Labs CBC & Chem 7: 09/27/17 06:24 09/27/17 06:24 Consult Discharge Plan - Plan Referrals: Jose Duke MD [Primary Care Provider] - 10/11/17 10:30 am
[2017-09-28] MEDS: traMADol 50 MG TABLET PO PRN (11:57)
--- NOTE | 2017-09-28 11:58 | Cardiology Progress Note ---
Date of Encounter: 09/28/17 Time of Encounter: 11:50 Assessment and Plan (1) Cardiomyopathy Current Visit: No Status: Acute Cardiomyopathy nonischemic per reports. TTE shows EF 25%, moderate MR, severe pulmonary hypertension. Biventricular heart failure on examination. Pleural effusion, ascities, LE edema on admit. BNP 1400. CHF education provided daily. Cr normal. Recommend increasing IV lasix today. Only 500ml out for 24 hours. Wt increased from previous. Will decrease toprol to allow for better b/p to diurese. On exam she appears to have improved some. WIll prob need 24 hours more IV diuretic. Maintenance lasix at discharge. Strict I/Os, daily weights. Monitor Cr. Recommend continue aspirin/statin/BB and digoxin therapy. Consider ACEi if b/p improves. Qualifiers: Cardiomyopathy type: unspecified Qualified Code(s): I42.9 - Cardiomyopathy , unspecified (2) CAD (coronary artery disease) Current Visit: No Status: Acute [place] CAD, prior PCI. Unclear why on Plavix - no recent PCI. Okay to hold. Also on aspirin/Xarelto. Continue statin/BB therapy. Qualifiers: Coronary Disease-Associated Artery/Lesion type: [place] artery [place] vs. transplanted heart: [place] heart Associated angina: without angina Qualified Code(s): I25.10 - Atherosclerotic heart disease of [place] coronary artery without angina pectoris (3) Syncope Current Visit: Yes Status: Acute Syncope, suspicious for ortostasis. Preceding diarrhea and occurred with position change. Taking cardiac medications. Suspect BP was on low side. Repeat TTE completed and shows EF 25%, moderate mitral regurgitation, and severe pulmonary hypertension. Known non-ischemic cardiomyopathy per history. TTE 05/2017- EF 25-30%, moderate to severe MR. ICD in place. Device check completed. Shows normal functioning device. No significant arrhythmias seen. B/p Is stable with taking toprol at lower dose. Continue toprol. Qualifiers: Syncope type: unspecified Qualified Code(s): R55 - Syncope and collapse (4) Atrial fibrillation Current Visit: No Status: Chronic Atrial fibrillation, HR seems well controlled. AVG HR 76 bpm, atrial fibrillation, occasional PVC. Continue BB and Xarelto therapy. Prior anemia, current Hg stable. Qualifiers: Atrial fibrillation type: chronic Qualified Code(s): I48.2 - Chronic atrial fibrillation (5) ICD (implantable cardioverter-defibrillator) in place Current Visit: No Status: Chronic ICD check shows normal functioning device. No concerning events. Discussion w patient/family: The assessment and plan as outlined above was discussed with the patient and/or family members who expressed understanding and agreement. All questions were answered. Thank you for involving us in the care of your patient. Please call with any questions. Subjective Principal diagnosis: syncope Interval history: Ms. Mckeon is more alert today. She says she feels better. Objective Vital Signs, Last 4 Hours Temp Pulse Resp BP Pulse Ox 09/28/17 10:19 98.0 F 100 14 98/71 99 General: Conversant, No Apparent Distress HEENT: Atraumatic, Normocephaly, Mucus Membranes Moist Neck: No JVD, Normal carotid pulses Cardiac: Reg Rate and Rhythm, Normal S1 and S2, No Murmur Lungs: Normal Breath Sounds, No Wheeze, Rales, Rhonchi Neuro: Alert and responsive, No focal deficits noted Abdomen: Soft, Non-Tender Skin: No rashes noted on visualized skin Musculoskeletal: No Chest Wall Tenderness Extremities: No Clubbing, No Cyanosis, Normal Pulses, Other (2+ BLE edema) Results 09/27/17 06:24 09/27/17 06:24 - Imaging and Cardiology Echo: report reviewed - EKG Interpretation EKG results cardiology: personally reviewed Consult Discharge Plan - Plan Referrals: Jose Duke MD [Primary Care Provider] - 10/11/17 10:30 am
[2017-09-28] MEDS: *HR* Rivaroxaban 10 MG TABLET PO SCH (16:40)
[2017-09-28] MEDS: Famotidine 20 MG TABLET PO SCH (20:42)
[2017-09-28] MEDS: traZODone 50 MG TABLET PO SCH (20:42)
[2017-09-29] MEDS: *HR* Digoxin 0.125 MG TABLET PO SCH (08:53)
[2017-09-29] MEDS: Furosemide 40 MG/4 ML VIAL IVP SCH (08:53)
[2017-09-29] MEDS: Nicotine 14 MG PATCH.TD24 TD SCH (08:54)
[2017-09-29] MEDS: Aspirin 81 MG TAB.CHEW PO SCH (08:54)
[2017-09-29] MEDS: Gabapentin 300 MG CAPSULE PO SCH (08:54)
[2017-09-29] MEDS ORDERED: Metoprolol XL (24 HR) Succ 50 MG TAB.ER.24H PO SCH (09:00)
--- NOTE | 2017-09-29 10:00 | Cardiology Progress Note ---
Date of Encounter: 09/29/17 Time of Encounter: 09:56 Assessment and Plan (1) Cardiomyopathy Current Visit: No Status: Acute Cardiomyopathy nonischemic per reports. TTE shows EF 25%, moderate MR, severe pulmonary hypertension. Biventricular heart failure on examination. Pleural effusion, ascities, LE edema on admit. BNP 1400. CHF education provided daily. Cr remains normal. Recommend converting to oral lasix 40 mg daily today. Strict I/Os, daily weights. Low sodium diet. Recommend continue aspirin/statin/BB and digoxin therapy. No aceI d/t low blood pressure. Cardiology will sign off. Call with questions. Qualifiers: Cardiomyopathy type: unspecified Qualified Code(s): I42.9 - Cardiomyopathy , unspecified (2) CAD (coronary artery disease) Current Visit: No Status: Acute [place] CAD, prior PCI. Unclear why on Plavix - no recent PCI. Okay to hold. Also on aspirin/Xarelto. Continue statin/BB therapy. Qualifiers: Coronary Disease-Associated Artery/Lesion type: [place] artery [place] vs. transplanted heart: [place] heart Associated angina: without angina Qualified Code(s): I25.10 - Atherosclerotic heart disease of [place] coronary artery without angina pectoris (3) Syncope Current Visit: Yes Status: Acute Syncope, suspicious for ortostasis. Preceding diarrhea and occurred with position change. Taking cardiac medications. Suspect BP was on low side. Repeat TTE completed and shows EF 25%, moderate mitral regurgitation, and severe pulmonary hypertension. Known non-ischemic cardiomyopathy per history. TTE 05/2017- EF 25-30%, moderate to severe MR. ICD in place. Device check completed. Shows normal functioning device. No significant arrhythmias seen. B/p Is stable with taking toprol at lower dose. Continue toprol. Qualifiers: Syncope type: unspecified Qualified Code(s): R55 - Syncope and collapse (4) Atrial fibrillation Current Visit: No Status: Chronic Atrial fibrillation, HR seems well controlled. Continue BB and Xarelto therapy. Prior anemia, current Hg stable. Qualifiers: Atrial fibrillation type: chronic Qualified Code(s): I48.2 - Chronic atrial fibrillation (5) ICD (implantable cardioverter-defibrillator) in place Current Visit: No Status: Chronic ICD check shows normal functioning device. No concerning events. Discussion w patient/family: The assessment and plan as outlined above was discussed with the patient and/or family members who expressed understanding and agreement. All questions were answered. Thank you for involving us in the care of your patient. Please call with any questions. Subjective Principal diagnosis: syncope Interval history: Ms. Mckeon is more alert today. She says she feels better. Objective Vital Signs, Last 4 Hours Temp Pulse Resp BP Pulse Ox 09/29/17 08:48 100/76 09/29/17 07:38 98.0 F 74 16 96/69 97 General: Conversant, No Apparent Distress HEENT: Atraumatic, Normocephaly, Mucus Membranes Moist Neck: No JVD, Normal carotid pulses Cardiac: Reg Rate and Rhythm, Normal S1 and S2, No Murmur Lungs: Normal Breath Sounds, No Wheeze, Rales, Rhonchi Neuro: Alert and responsive, No focal deficits noted Abdomen: Soft, Non-Tender Skin: No rashes noted on visualized skin Musculoskeletal: No Chest Wall Tenderness Extremities: No Clubbing, No Cyanosis, Normal Pulses, Other (1+ edema BLE) Results 09/27/17 06:24 09/27/17 06:24 - Imaging and Cardiology Echo: report reviewed - EKG Interpretation EKG results cardiology: personally reviewed Consult Discharge Plan - Plan Referrals: Jose Duke MD [Primary Care Provider] - 10/11/17 10:30 am
[2017-09-29 11:01] VITALS: BP 96/69
--- NOTE | 2017-09-29 12:39 | Discharge Summary ---
Date of Encounter: 09/29/17 Time of Encounter: 12:35 - Discharge Diagnosis (1) Acute combined systolic and diastolic congestive heart failure Priority: Primary Status: Acute Comments: EF 25% with biventricular heart failure on examination Acute on chronic combined systolic and diastolic congestive heart failure with biventricular failure Pleural effusion, ascites, lower extremity edema BNP 1400 on admission. Resume normal Lasix order at home of 40 mg daily by mouth Follow-up with cardiology next week as scheduled (2) Syncope Priority: Primary Status: Resolved Comments: Syncope was suspicious for orthostasis secondary to preceding diarrhea and position change. Continue cardiac medications blood pressure was likely on the low side secondary to diarrhea and volume loss combined with her diuretics at home. Continue Toprol Qualifiers: Syncope type: unspecified Qualified Code(s): R55 - Syncope and collapse (3) CAD (coronary artery disease) Priority: Secondary Status: Chronic Comments: [place] CAD, prior PCI. Unclear why on Plavix - no recent PCI. Okay to hold. Also on aspirin/Xarelto. Continue statin/BB therapy. Qualifiers: Coronary Disease-Associated Artery/Lesion type: [place] artery [place] vs. transplanted heart: [place] heart Associated angina: without angina Qualified Code(s): I25.10 - Atherosclerotic heart disease of [place] coronary artery without angina pectoris (4) Cardiomyopathy Priority: Secondary Status: Chronic Comments: Cardiomyopathy nonischemic per reports. TTE shows EF 25%, moderate MR, severe pulmonary hypertension. Biventricular heart failure on examination. Pleural effusion, ascities, LE edema on admit. BNP 1400. CHF education provided daily.oral lasix 40 mg daily tomorrow with extra dose of lasix at home tonight Strict I/Os, daily weights. Low sodium diet. Recommend continue aspirin/statin/BB and digoxin therapy. No aceI d/t low blood pressure. Qualifiers: Cardiomyopathy type: unspecified Qualified Code(s): I42.9 - Cardiomyopathy , unspecified (5) Atrial fibrillation Priority: Primary Status: Chronic Comments: Atrial fibrillation, HR seems well controlled. Continue BB and Xarelto therapy. Prior anemia, current Hg stable. Qualifiers: Atrial fibrillation type: chronic Qualified Code(s): I48.2 - Chronic atrial fibrillation (6) Blood in stool Priority: Secondary Status: Resolved Comments: Pt report one time blood in stool, had colonoscope in 2016 and was found polyps. Pt also said she has hemorrhoid. - Hgb is stable now. No signs of active bleeding during admission. -Continue xarelto, asa, or plavix considering pt's hx of A Fib and CAD ) Hospital course: Ms. Mckeon is a 52 year old female with history of CAD status post PCI in 2008. She has nonischemic cardiomyopathy status post ICD with EF of 25% on echocardiogram completed on this admission. Her previous LVEF was 3035%. She has biventricular heart failure. She also has chronic atrial fib on Xarelto. She had a syncopal episode at home after she bent over while sweeping the floor. She stated it was very transient her ICD did not discharge. She does continue to smoke. She was found to have some pulmonary edema with some ascites and diffuse anasarca, as well as bilateral pleural effusions. She has received IV Lasix 40 mg twice a day with management of her electrolytes. Cardiology did follow the patient during her stay. Tobacco cessation was recommended. She will go home today with her home oxygen. We also added compression stockings to her lower extremities. She will follow-up with cardiology in 1 week. She is feeling much better and is anxious for discharge today. Checked his headache and a dose of 40 mg by mouth Lasix tonight after receiving her IV dose here this morning and then will resume 40 mg by mouth daily in the morning. The patient did verbalize understanding of these instructions. Discharge discussed with: patient, nurse, case management - Time Spent with Patient Total time spent providing and/or coordinating discharge services: Less than 30 minutes - Discharge Medications Home Medications: Metoprolol XL (24 HR) Succ [Toprol Xl] 100 mg PO DAILY 05/04/15 [History] Simvastatin [Zocor] 40 mg PO HS 05/04/15 [History] Rivaroxaban [Xarelto] 20 mg PO DAILY 06/23/15 [History] Gabapentin [Neurontin] 300 mg PO TID 01/12/16 [History] Furosemide [Lasix] 20 mg PO BID PRN 02/02/16 [History] Losartan [Cozaar] 25 mg PO DAILY 02/02/16 [History] Trazodone HCl 150 mg PO HS 02/02/16 [History] Clopidogrel [Plavix] 75 mg PO DAILY #30 tablet 03/10/16 [Rx] Nitroglycerin [Nitrostat] 0.4 mg SL Q5M PRN 03/10/16 [History] Aspirin 81 mg PO DAILY 05/04/16 [History] Digoxin [Lanoxin] 0.125 mg PO DAILY 04/22/17 [History] Escitalopram [Lexapro] 20 mg PO DAILY 04/22/17 [History] Melatonin 10 mg PO HS PRN 04/22/17 [History] Ranitidine HCl [Zantac] 150 mg PO BID 04/22/17 [History] HydrOXYzine 10 mg PO TID 09/25/17 [History] Potassium Chloride [Klor-Con Sprinkle] 10 meq PO DAILY 09/25/17 [History] Allergies/Adverse Reactions: 3 Allergy/AdvReac Type Severity Reaction Status Date / Time No Known Allergies Allergy Verified 05/29/17 16:28 Date of admission: 09/24/17 20:46 Primary care physician: Jose Duke MD Consults: 09/24/17 20:52 Consult to Cardiology [CONS] Routine Comment: Consulting Provider: Cardiology [facility] Reason for Consult: Syncope, pt has systolic CHF on AICD Call Completed: No 09/26/17 15:19 Consult to Gastroenterology [CONS] Routine Consulting Provider: [facility] [place] Reason for Consult: blood in stool Time Notified: 15:21 Call Completed: No Discharging clinician: Christine Garduno Anticipated date of discharge: 09/29/17 - Constitutional Vitals: Temp Pulse Resp BP Pulse Ox 98.0 F 74 15 96/69 97 09/29/17 11:00 09/29/17 11:00 09/29/17 11:00 09/29/17 11:00 09/29/17 11:00 General appearance: Present: cooperative, A&O X 3, pleasant, obese, answers questions appropriately - Head Head exam: Present: atraumatic, normocephalic - Eye Eye exam: Present: PERRL, conjuntiva pink, sclera anicteric Pupils: Present: PERRL - Neck Neck exam general surgery: Present: supple, trachea midline. Absent: lymphadenopathy - Respiratory Respiratory exam: Present: decreased breath sounds, CTAB. Absent: accessory muscle use, rales, rhonchi, wheezes - Cardiovascular Cardiovascular exam: Present: irregular rhythm, +S1, +S2. Absent: diastolic murmur, gallop, rubs, systolic murmur - GI/Abdominal GI/Abdominal exam: Present: normal bowel sounds, soft, no peritoneal signs. Absent: distended, tenderness - Extremities Exam Extremities exam: Present: pedal edema, warm, radial pulses palpable and symmetrical. Absent: calf tenderness, cyanotic - Neurological Exam Neurological exam: Present: alert, CN II-XII intact, normal gait, oriented X3, no focal deficits, strengths equal and symetr throughout. Absent: pronater drift, facial droop, speech deficit - Skin Skin exam: Present: dry, erythema, intact, warm - Patient Status Disposition: Home, Self-Care Condition: Good Functional capacity at discharge: independent ambulation Overall status at discharge: patient is progressing back to baseline - Discharge Instructions Instructions: Heart Failure (DC) Follow Up With: Jose Duke MD [Primary Care Provider] - 10/11/17 10:30 am - Diet and Activity Activity: increase activity as tolerated, resume usual activities as tolerated, other (Home O2 as needed as previously used) Diet: low fat, low cholesterol, low salt diet
--- NOTE | 2017-09-30 08:15 | Electrocardiograph Report ---
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
== END 2017-09-29 14:10 | disposition home or self-care (01) | DRG 194 ==
LOC: 3BNU 14:55 → EMEROO 14:55 → 3BNU 19:47
PROVIDERS: ADMIT Internal Medicine; ATTEND Registered Nurse